=== PATIENT | female | born 1985 | race Caucasian/White ===

== ENCOUNTER 2018-02-01 05:56 | Day surgery (SDC) | payer MEDICAID ==
[2018-01-26 16:09] LABS: BASOPHILS # (AUTO) 0.1 X10'3 (0-0.2); BASOPHILS % (AUTO) 1.2 % (0-1); EOSINOPHILS # (AUTO) 0.2 X10'3 (0-0.9); EOSINOPHILS % (AUTO) 1.5 % (0-6); LYMPHOCYTES # (AUTO) 1.9 X10'3 (1.1-4.8); LYMPHOCYTES % (AUTO) 17.9 % (21-51); MEAN CORPUSCULAR HEMOGLOBIN 26.8 PG (27.0-31.0); MEAN CORPUSCULAR HGB CONC 33.5 % (33.0-36.5); MEAN CORPUSCULAR VOLUME 80.1 FL (78-98); MEAN PLATELET VOLUME 9.1 FL (7.4-10.4); MONOCYTES # (AUTO) 0.5 X10'3 (0-0.9); NEUTROPHILS % (AUTO) 74.4 % (42-75); PRE OP HEMATOCRIT 42.9 % (35.0-45.0); PRE OP HEMOGLOBIN 14.4 g/dL (12.0-16.0); PRE OP PLATELET COUNT 222 X10'3 (140-440); RED BLOOD COUNT 5.35 X10'6 (4.20-5.60); RED CELL DISTRIBUTION WIDTH 15.2 % (11.5-14.5)
[2018-01-26 16:14] LABS: CLARITY,URINE CLEAR (Clear); COLOR,URINE YELLOW (Yellow); GLUCOSE, URINE NEGATIVE (Neg); KETONES,URINE NEGATIVE (Neg); LEUKOCYTE ESTERASE ,URINE NEGATIVE (Neg); NITRITES, URINE NEGATIVE (Neg); OCCULT BLOOD,URINE TRACE-LYSED (Neg); PH,URINE 6.5 (4.8-8.0); PROTEIN,URINE NEGATIVE (Neg); UROBILINOGEN,URINE 0.2 E.U/dL (0.2-1.0)
[2018-01-26 16:18] LABS: UA COLLECTION TYPE NON-SPECIFIED
[2018-01-26 16:22] LABS: BACTERIA,URINE 1+ /HPF (Neg); MUCUS STRANDS NONE SEEN /LPF (Neg); RBC,URINE 0-2 /HPF (0-2); SQUAMOUS EPITHELIAL CELL,UR NONE SEEN /LPF (FEW)
[2018-01-26 16:24] LABS: ALBUMIN 3.6 G/DL (3.4-5.0); ALBUMIN/GLOBULIN RATIO 0.9 (1.1-1.5); ALKALINE PHOSPHATASE 79 IU/L (46-116); BLOOD UREA NITROGEN 15 MG/DL (7-18); BUN/CREATININE RATIO 21.4 (6.6-38.0); CHLORIDE 103 MMOL/L (99-107); PRE OP ALT 41 U/L (30-65); PRE OP ANION GAP 10 (8-16); PRE OP AST 26 U/L (10-37); PRE OP BILIRUB, TOTAL 0.8 MG/DL (0.0-1.0); PRE OP GLUCOSE 93 MG/DL (70-104); PRE OP POTASSIUM 3.8 MMOL/L (3.4-5.1); PRE OP SODIUM 142 MMOL/L (135-145); TOTAL CARBON DIOXIDE 29.3 MMOL/L (24-32); TOTAL PROTEIN 7.6 G/DL (6.4-8.2); eGFR > 90 ML/MIN
[~2018-02-01] VITALS: Ht 152.4 cm; Wt 176.6 kg
[2018-02-01] VITALS (7 sets, daily range): BP systolic 134–143; BP diastolic 70–92
[~2018-02-01 05:56] MED LIST: ALBU0.63 NEB; ALBU18HF2 INH; BUPIVAcaine/PF 2.5mg/ml (0.25%) 10ml vial ONE; BUPIVAcaine/PF 7.5mg/ml (0.75%) 10ml vial ONE; LIDOcaine 1%/PF 5ML 10 MG/ML VIAL ONE; MIDAZolam 5mg/5ml vial ONE; VENL75CA55 PO; XAL0.005OS EACHEYE; [UNRECOGNIZED DRUG - OTHER] INH; albuterol 2.5 MG/3 ML nebule NEB ONE; ceFAZolin inj. 3,000 MG in normal saline 100ml IV soln 100 ML IV ONE; famotidine 20mg tablet PO ONE; fentaNYL/PF 50MCG/1 ML 2ML syringe ONE; propofol inj 20 ML IV ONE; ringers solution, lacted 1,000 ML IV SCH
[2018-02-01] MEDS ORDERED: ROPIVAcaine 0.5% (5mg/ml) 30ml vial ONE (06:48)
[2018-02-01] MEDS ORDERED: MIDAZolam 5mg/ml 2ml vial IV PRN (08:15)
[2018-02-01] MEDS ORDERED: fentaNYL /PF 50mcg/ml 5ml ampule ONE (08:15)
[2018-02-01] MEDS ORDERED: MIDAZolam 5mg/ml 2ml vial IV ONE (08:15)
[2018-02-01] MEDS ORDERED: propofol inj 20 ML IV ONE ×2 (08:17→08:18)
[2018-02-01] MEDS ORDERED: LIDOcaine 2% (20mg/ml) 5ml vial ONE (08:18)
[2018-02-01] MEDS ORDERED: succinylcholine 20mg/ml inj IV ONE (08:19)
[2018-02-01] MEDS ORDERED: ringers solution, lacted 1,000 ML IV SCH (08:26)
[2018-02-01] MEDS ORDERED: ondansetron/PF 4mg/2ml inj IV PRN (08:30)
[2018-02-01] MEDS ORDERED: HYDROmorphone inj. 0.5 MG/0.5 ML DISP.SYRIN IV PRN ×2 (08:30)
[2018-02-01] MEDS ORDERED: fentaNYL/PF 50MCG/1 ML 2ML syringe IV PRN ×2 (08:30)
[2018-02-01] MEDS ORDERED: labetalol 20mg/4ml (5mg/ml) syringe IV PRN (08:30)
[2018-02-01] MEDS ORDERED: hydrALAZINE 20mg/ml inj. IV PRN (08:30)
[2018-02-01] MEDS ORDERED: propofol 10mg/ml 20ml vial IV ONE (08:35)
[2018-02-01] MEDS ORDERED: sevoflurane 250ml liquid IH ONE (08:35)
[2018-02-01] MEDS ORDERED: dexmedetomidine 200mcg/2ml inj. IV ONE (08:36)
[2018-02-01] MEDS ORDERED: hydrALAZINE 20mg/ml inj. IV ONE (08:52)
[2018-02-01] MEDS ORDERED: ondansetron/PF 4mg/2ml inj ONE (09:06)
[2018-02-01] MEDS ORDERED: dexamethasone sod phosphate 4mg/ml inj. ONE (09:06)
== END 2018-02-01 10:42 | disposition home or self-care (01) ==
LOC: PAS 05:56
PROVIDERS: ATTEND Surgery
DX: K60.1 Chronic anal fissure (principal); K64.8 Other hemorrhoids; K62.89 Other specified diseases of anus and rectum; E66.01 Morbid (severe) obesity due to excess calories; J45.998 Other asthma; E11.9 Type 2 diabetes mellitus without complications; F41.8 Other specified anxiety disorders; F32.9 Major depressive disorder, single episode, unspecified; G43.909 Migraine, unspecified, not intractable, without status migrainosus; F43.10 Post-traumatic stress disorder, unspecified; Z88.5 Allergy status to narcotic agent; Z68.44 Body mass index [BMI] 60.0-69.9, adult; Z90.710 Acquired absence of both cervix and uterus; Z90.49 Acquired absence of other specified parts of digestive tract; Z86.14 Personal history of Methicillin resistant Staphylococcus aureus infection; Z88.1 Allergy status to other antibiotic agents; Z91.040 Latex allergy status; Z91.048 Other nonmedicinal substance allergy status; Z98.890 Other specified postprocedural states; Z79.899 Other long term (current) drug therapy; Z88.8 Allergy status to other drugs, medicaments and biological substances
CPT/HCPCS: 36415; 45990; 46200; 80053; 81001; 82948; 85025; 87088; 93005; A6224; A6449; J0330; J0360; J0690; J1100; J2001; J2250; J2405; J2704; J2795; J3010; J7030; A7000; J3490; J7120

== ENCOUNTER 2018-03-21 04:42 | Inpatient (IN) | payer MEDICAID ==
[~2018-03-21] VITALS: Ht 170.2 cm; Wt 174.1 kg
[~2018-03-21 04:42] MED LIST changes: -BUPIVAcaine/PF 2.5mg/ml (0.25%) 10ml vial ONE; -BUPIVAcaine/PF 7.5mg/ml (0.75%) 10ml vial ONE; -LIDOcaine 1%/PF 5ML 10 MG/ML VIAL ONE; -MIDAZolam 5mg/5ml vial ONE; -albuterol 2.5 MG/3 ML nebule NEB ONE; -ceFAZolin inj. 3,000 MG in normal saline 100ml IV soln 100 ML IV ONE; -famotidine 20mg tablet PO ONE; -fentaNYL/PF 50MCG/1 ML 2ML syringe ONE; -propofol inj 20 ML IV ONE; -ringers solution, lacted 1,000 ML IV SCH
[2018-03-21] MEDS ORDERED: normal saline 1000ML IV soln IVB ONE ×2 (04:55→06:55)
[2018-03-21] MEDS ORDERED: ondansetron/PF 4mg/2ml inj IV ONE (04:55)
[2018-03-21] MEDS ORDERED: ketorolac tromethamine 15mg/ml inj. IV ONE (04:55)
[2018-03-21] MEDS ORDERED: ketorolac trometh. 30mg/ml inj. IV ONE (04:55)
[2018-03-21] MEDS ORDERED: HYDROmorphone 1 mg/ml syringe IV PRN (05:10)
[2018-03-21 05:50] LABS: BASOPHILS # (AUTO) 0.1 X10'3 (0-0.2); BASOPHILS % (AUTO) 1.2 % (0-1); EOSINOPHILS # (AUTO) 0.2 X10'3 (0-0.9); EOSINOPHILS % (AUTO) 2.1 % (0-6); HEMATOCRIT 48.7 % (35.0-45.0); HEMOGLOBIN 16.2 g/dl (12.0-16.0); LYMPHOCYTES # (AUTO) 1.7 X10'3 (1.1-4.8); LYMPHOCYTES % (AUTO) 20.1 % (21-51); MEAN CORPUSCULAR HEMOGLOBIN 27.3 PG (27.0-31.0); MEAN CORPUSCULAR HGB CONC 33.3 % (33.0-36.5); MEAN CORPUSCULAR VOLUME 81.8 FL (78-98); MEAN PLATELET VOLUME 10.6 FL (7.4-10.4); MONOCYTES # (AUTO) 0.5 X10'3 (0-0.9); MONOCYTES % (AUTO) 5.4 % (2-12); NEUTROPHILS # (AUTO) 5.9 X10'3 (1.8-7.7); NEUTROPHILS % (AUTO) 71.2 % (42-75); PLATELET COUNT 194 X10'3 (140-440); RED BLOOD COUNT 5.95 X10'6 (4.20-5.60); RED CELL DISTRIBUTION WIDTH 15.1 % (11.5-14.5); WHITE BLOOD COUNT 8.3 X10'3 (4.5-11.0)
[2018-03-21 06:05] LABS: ALANINE AMINOTRANSFERASE 43 U/L (12-78); ALBUMIN 3.9 G/DL (3.4-5.0); ALBUMIN/GLOBULIN RATIO 0.8 (1.1-1.5); ALKALINE PHOSPHATASE 84 IU/L (46-116); ANION GAP 13 (8-16); ASPARTATE AMINO TRANSFERASE 36 U/L (10-37); BILIRUBIN,TOTAL 0.5 MG/DL (0.1-1.0); BLOOD UREA NITROGEN 12 MG/DL (7-18); BUN/CREATININE RATIO 17.1 (6.6-38.0); CALCIUM 9.6 MG/DL (8.5-10.1); CHLORIDE 103 MMOL/L (99-107); GLUCOSE 92 MG/DL (70-104); SODIUM 141 MMOL/L (135-145); TOTAL PROTEIN 8.6 G/DL (6.4-8.2); eGFR > 90 ML/MIN
[2018-03-21 06:17] LABS: LIPASE 2694 U/L (73-393); POTASSIUM 4.1 MMOL/L (3.5-5.1)
[2018-03-21] MEDS ORDERED: fentaNYL/PF 50MCG/1 ML 2ML syringe IV ONE (06:55)
[2018-03-21] MEDS: normal saline 1000ml 1,000 ML IV SCH ×3 (07:51→19:53)
[2018-03-21] MEDS ORDERED: potassium Cl 20 mEq SR tablet PO PRN ×2 (07:55)
[2018-03-21] MEDS ORDERED: potassium Cl 40MEQ/NS 500ml 500 ML IV PRN ×2 (07:55)
[2018-03-21] MEDS ORDERED: HYDROcodone/acetaminophen 10/325mg tab PO PRN (07:55)
[2018-03-21] MEDS ORDERED: HYDROcodone/acetaminophen 5mg/325mg tablet PO PRN (07:55)
[2018-03-21] MEDS ORDERED: magnesium Cl slow-release 64mg tablet PO PRN (07:55)
[2018-03-21] MEDS ORDERED: magnesium 1gm/100ml D5W IVPB 100 ML IV PRN (07:55)
[2018-03-21] MEDS ORDERED: morphine 2 MG/ML inj. syringe IV PRN ×2 (07:55)
[2018-03-21] MEDS ORDERED: magnesium 4gm in 100ml NS 100 ML IV PRN (07:55)
[2018-03-21] MEDS ORDERED: acetaminophen 325mg tablet PO PRN ×2 (07:55)
[2018-03-21] MEDS ORDERED: magnesium hydroxide 30ml (MOM) UD suspension PO PRN (07:55)
[2018-03-21] MEDS ORDERED: mag hydrox/Alum hydrox/simeth 30ml oral suspension PO PRN (07:55)
[2018-03-21] MEDS: K and/or MAG REPLACEMENT MC SCH (08:00)
[2018-03-21 09:40] LABS: CLARITY,URINE SLIGHTLY CLOUDY (Clear); COLOR,URINE YELLOW (Yellow); GLUCOSE, URINE NEGATIVE (Neg); KETONES,URINE 15 mg/dl (Neg); LEUKOCYTE ESTERASE ,URINE NEGATIVE (Neg); NITRITES, URINE NEGATIVE (Neg); OCCULT BLOOD,URINE LARGE (Neg); PH,URINE 8.5 (4.8-8.0); PROTEIN,URINE NEGATIVE (Neg); UA COLLECTION TYPE CLN CATCH MIDSTREAM
[2018-03-21 09:50] LABS: BACTERIA,URINE 3+ /HPF (Neg); MUCUS STRANDS FEW /LPF (Neg); RBC,URINE TNTC /HPF (0-2); SQUAMOUS EPITHELIAL CELL,UR MODERATE /LPF (FEW); WBC,URINE 20-30 /HPF (0-4)
[2018-03-21 10:00] VITALS: BP 122/65
[2018-03-21] MEDS ORDERED: dextrose 50%-water 50ml dispensing syringe IV PRN ×2 (10:15)
[2018-03-21] MEDS ORDERED: dextrose ORAL solution 15 GM/59 ML bottle PO PRN ×2 (10:15)
[2018-03-21] MEDS ORDERED: non-formulary drug (Albuterol Sulfate 1 VIAL) NEB PRN (10:15)
[2018-03-21] MEDS ORDERED: glucagon, human recombinant 1mg kit SUBCUT PRN (10:15)
[2018-03-21] MEDS ORDERED: MESSAGE TO PHARMACY PO ONE (10:15)
[2018-03-21] MEDS: latanoprost 0.005% 2.5ml ophthalmic drops EACHEYE SCH ×2 (10:15→20:47)
[2018-03-21] MEDS ORDERED: insulin Lispro (HumaLOG) vial - multi-dose SQ SCH (10:15)
[2018-03-21] MEDS ORDERED: ketorolac trometh. 30mg/ml inj. IV PRN (10:20)
[2018-03-21] MEDS: pantoprazole 40 MG vial IV SCH (10:20)
[2018-03-21] MEDS ORDERED: albuterol 2.5 MG/3 ML nebule NEB PRN (11:25)
[2018-03-21] MEDS ORDERED: ketorolac tromethamine 15mg/ml inj. IV PRN (12:04)
[2018-03-21 19:30] VITALS: BP 180/97
[2018-03-21] MEDS: ondansetron/PF 4mg/2ml inj IV PRN (19:54)
[2018-03-21] MEDS ORDERED: magnesium oxide 400mg tablet PO ONE (20:50)
[2018-03-21] MEDS: insulin glargine (Lantus) pen - multi-dose SQ SCH (21:00)
[2018-03-22] VITALS (15 sets, daily range): BP systolic 112–163; BP diastolic 55–106
[2018-03-22] MEDS ORDERED: temazepam 15mg capsule PO PRN (02:40)
[2018-03-22 06:25] LABS: BASOPHILS % (AUTO) 0.6 % (0-1); EOSINOPHILS # (AUTO) 0.1 X10'3 (0-0.9); EOSINOPHILS % (AUTO) 2.3 % (0-6); HEMATOCRIT 37.6 % (35.0-45.0); HEMOGLOBIN 12.6 g/dl (12.0-16.0); LYMPHOCYTES # (AUTO) 1.6 X10'3 (1.1-4.8); LYMPHOCYTES % (AUTO) 27.5 % (21-51); MEAN CORPUSCULAR HEMOGLOBIN 27.4 PG (27.0-31.0); MEAN CORPUSCULAR HGB CONC 33.6 % (33.0-36.5); MEAN CORPUSCULAR VOLUME 81.4 FL (78-98); MEAN PLATELET VOLUME 9.9 FL (7.4-10.4); MONOCYTES # (AUTO) 0.5 X10'3 (0-0.9); MONOCYTES % (AUTO) 7.6 % (2-12); NEUTROPHILS # (AUTO) 3.7 X10'3 (1.8-7.7); PLATELET COUNT 151 X10'3 (140-440); RED BLOOD COUNT 4.61 X10'6 (4.20-5.60)
[2018-03-22 06:39] LABS: ALANINE AMINOTRANSFERASE 53 U/L (12-78); ALBUMIN 2.8 G/DL (3.4-5.0); ALBUMIN/GLOBULIN RATIO 0.8 (1.1-1.5); ALKALINE PHOSPHATASE 72 IU/L (46-116); ANION GAP 8 (8-16); ASPARTATE AMINO TRANSFERASE 58 U/L (10-37); BILIRUBIN,TOTAL 0.8 MG/DL (0.1-1.0); BLOOD UREA NITROGEN 9 MG/DL (7-18); BUN/CREATININE RATIO 14.1 (6.6-38.0); CALCIUM 8.3 MG/DL (8.5-10.1); CHLORIDE 108 MMOL/L (99-107); CREATININE 0.64 MG/DL (0.40-0.90); GLUCOSE 91 MG/DL (70-104); MAGNESIUM 1.7 MG/DL (1.5-2.4); SODIUM 141 MMOL/L (135-145); TOTAL CARBON DIOXIDE 25.5 MMOL/L (24-32); TOTAL PROTEIN 6.1 G/DL (6.4-8.2); eGFR > 90 ML/MIN
[2018-03-22] MEDS: K and/or MAG REPLACEMENT MC SCH (07:05)
[2018-03-22] MEDS ORDERED: [UNRECOGNIZED DRUG - OTHER] INH SCH (08:00)
[2018-03-22] MEDS ORDERED: cloNIDine 0.1 mg tablet PO ONE (08:00)
[2018-03-22] MEDS: pantoprazole 40 MG vial IV SCH (08:17)
[2018-03-22] MEDS ORDERED: ringers solution, lacted 1,000 ML IV SCH (08:53)
[2018-03-22] MEDS ORDERED: proCHLORperazine 10 MG/2 ml inj IV PRN (08:55)
[2018-03-22] MEDS ORDERED: meperidine/PF 25mg/ml syringe IV PRN ×3 (08:55)
[2018-03-22] MEDS ORDERED: ondansetron/PF 4mg/2ml inj IV PRN (08:55)
[2018-03-22] MEDS ORDERED: midazolam 2 mg/2 ml injection ONE (09:55)
[2018-03-22] MEDS ORDERED: fentaNYL/PF 50MCG/1 ML 2ML syringe ONE (09:55)
[2018-03-22] MEDS ORDERED: iohexol 300 MG/1 ML 50ml polymer ONE (10:06)
[2018-03-22] MEDS ORDERED: propofol inj 20 ML IV ONE ×2 (10:06)
[2018-03-22 10:17] LABS: LIPASE 1953 U/L (73-393)
[2018-03-22] MEDS ORDERED: ondansetron/PF 4mg/2ml inj ONE (10:36)
[2018-03-22] MEDS: normal saline 1000ml 1,000 ML IV SCH ×2 (13:34→20:46)
[2018-03-22] MEDS: oxybutynin 5mg tablet PO SCH ×2 (13:34→20:48)
[2018-03-22] MEDS ORDERED: cephalexin 500mg capsule PO SCH ×2 (14:00→16:00)
[2018-03-22] MEDS: ondansetron/PF 4mg/2ml inj IV PRN (16:20)
[2018-03-22] MEDS ORDERED: HYDROmorphone inj. 0.5 MG/0.5 ML DISP.SYRIN IV PRN (16:35)
[2018-03-22] MEDS: HYDROmorphone 1 mg/ml syringe IV PRN (16:42)
[2018-03-22] MEDS: insulin glargine (Lantus) pen - multi-dose SQ SCH (20:50)
[2018-03-22] MEDS ORDERED: tamsulosin 0.4mg capsule PO SCH (21:00)
[2018-03-22] MEDS: latanoprost 0.005% 2.5ml ophthalmic drops EACHEYE SCH (21:14)
[2018-03-22] MEDS: levoFLOXACIN-Levaquin 500mg/D5 100 ML IV SCH (23:44)
[2018-03-22] MEDS: heparin, porcine 5000 units/ml vial SQ SCH (23:50)
[2018-03-23] VITALS: BP 138/83
[2018-03-23] MEDS: HYDROmorphone 1 mg/ml syringe IV PRN (02:43)
[2018-03-23] MEDS: normal saline 1000ml 1,000 ML IV SCH ×3 (02:45→07:35)
[2018-03-23 05:25] LABS: BASOPHILS % (AUTO) 0.2 % (0-1); EOSINOPHILS # (AUTO) 0.1 X10'3 (0-0.9); EOSINOPHILS % (AUTO) 1.2 % (0-6); HEMATOCRIT 39.4 % (35.0-45.0); HEMOGLOBIN 13.1 g/dl (12.0-16.0); LYMPHOCYTES % (AUTO) 13.1 % (21-51); MEAN CORPUSCULAR HEMOGLOBIN 27.2 PG (27.0-31.0); MEAN CORPUSCULAR HGB CONC 33.2 % (33.0-36.5); MEAN CORPUSCULAR VOLUME 81.9 FL (78-98); MEAN PLATELET VOLUME 10.9 FL (7.4-10.4); MONOCYTES # (AUTO) 0.4 X10'3 (0-0.9); MONOCYTES % (AUTO) 5.7 % (2-12); NEUTROPHILS # (AUTO) 6.2 X10'3 (1.8-7.7); NEUTROPHILS % (AUTO) 79.8 % (42-75); PLATELET COUNT 159 X10'3 (140-440); RED BLOOD COUNT 4.81 X10'6 (4.20-5.60); RED CELL DISTRIBUTION WIDTH 14.8 % (11.5-14.5); WHITE BLOOD COUNT 7.7 X10'3 (4.5-11.0)
[2018-03-23 05:38] LABS: ALANINE AMINOTRANSFERASE 60 U/L (12-78); ALBUMIN 2.9 G/DL (3.4-5.0); ALBUMIN/GLOBULIN RATIO 0.8 (1.1-1.5); ALKALINE PHOSPHATASE 74 IU/L (46-116); ANION GAP 10 (8-16); ASPARTATE AMINO TRANSFERASE 40 U/L (10-37); BILIRUBIN,TOTAL 0.5 MG/DL (0.1-1.0); BLOOD UREA NITROGEN 9 MG/DL (7-18); CALCIUM 8.7 MG/DL (8.5-10.1); CHLORIDE 106 MMOL/L (99-107); GLUCOSE 94 MG/DL (70-104); LIPASE 66 U/L (73-393); MAGNESIUM 1.6 MG/DL (1.5-2.4); POTASSIUM 3.9 MMOL/L (3.5-5.1); SODIUM 140 MMOL/L (135-145); TOTAL CARBON DIOXIDE 23.9 MMOL/L (24-32); TOTAL PROTEIN 6.5 G/DL (6.4-8.2); eGFR > 90 ML/MIN
[2018-03-23 05:57] LABS: LARGE PLATELETS FEW; PLATELET ESTIMATE NORMAL
[2018-03-23] MEDS: K and/or MAG REPLACEMENT MC SCH (07:06)
[2018-03-23] MEDS: levoFLOXACIN-Levaquin 500mg/D5 100 ML IV SCH (07:34)
[2018-03-23] MEDS: oxybutynin 5mg tablet PO SCH (07:35)
[2018-03-23] MEDS: pantoprazole 40 MG vial IV SCH (07:35)
[2018-03-23] MEDS: heparin, porcine 5000 units/ml vial SQ SCH (07:35)
[2018-03-23 09:32] VITALS: BP 120/51
[2018-03-23] MEDS ORDERED: TAMS0.4C32 PO (11:25)
[2018-03-23] MEDS ORDERED: LEVO500T89 PO (11:25)
[2018-03-23] MEDS ORDERED: OXYB5TAB11 PO (11:25)
[2018-03-23] MEDS ORDERED: PROC-8 PO (11:25)
[2018-03-23 12:26] VITALS: BP 128/83
== END 2018-03-23 12:30 | disposition home or self-care (01) | DRG 446 ==
LOC: ER 04:42 → ED HOLD 07:51 → SUR 3N 10:00
PROVIDERS: ADMIT Hospitalist; ATTEND Family Medicine
PROC: BT141ZZ Fluoroscopy of Kidneys, Ureters and Bladder using Low Osmolar Contrast (ICD-10-PCS; 2018-03-22)
PROC: 0T768DZ Dilation of Right Ureter with Intraluminal Device, Via Natural or Artificial Opening Endoscopic (ICD-10-PCS; 2018-03-22)
PROC: 0TBB8ZZ Excision of Bladder, Via Natural or Artificial Opening Endoscopic (ICD-10-PCS; principal; 2018-03-22 09:42)
DX: D49.4 Neoplasm of unspecified behavior of bladder (principal); K85.90 Acute pancreatitis without necrosis or infection, unspecified; E66.01 Morbid (severe) obesity due to excess calories; E11.9 Type 2 diabetes mellitus without complications; E78.1 Pure hyperglyceridemia; F12.90 Cannabis use, unspecified, uncomplicated; N13.9 Obstructive and reflux uropathy, unspecified; F32.9 Major depressive disorder, single episode, unspecified; F41.9 Anxiety disorder, unspecified; G43.909 Migraine, unspecified, not intractable, without status migrainosus; J45.909 Unspecified asthma, uncomplicated; G89.29 Other chronic pain; N20.2 Calculus of kidney with calculus of ureter; Z88.5 Allergy status to narcotic agent; Z90.49 Acquired absence of other specified parts of digestive tract; Z79.899 Other long term (current) drug therapy; Z90.710 Acquired absence of both cervix and uterus; Z68.44 Body mass index [BMI] 60.0-69.9, adult; Z88.8 Allergy status to other drugs, medicaments and biological substances; Z91.040 Latex allergy status
CPT/HCPCS: 36415; 74176; 76001; 80053; 81001; 82948; 83036; 83690; 83735; 85025; 87070; 87088; 96361; 96374; 96375; 99285; A4402; A6255; C1758; C1769; C2617; C9113; G0378; J0690; J1170; J1644; J1815; J1885; J1956; J2250; J2405; J2704; J3010; J7030; J7120; Q9967

== ENCOUNTER 2018-03-23 21:27 | Inpatient (IN) | payer MEDICAID ==
[~2018-03-23] VITALS: Ht 170.2 cm; Wt 174.1 kg
[~2018-03-23 21:27] MED LIST changes: +LEVO500T89 PO; +OXYB5TAB11 PO; +PROC-8 PO; +TAMS0.4C32 PO; -VENL75CA55 PO
[2018-03-23] MEDS ORDERED: fentaNYL/PF 50MCG/1 ML 2ML syringe NAS ONE (22:40)
[2018-03-23] MEDS ORDERED: ondansetron/PF 4mg/2ml inj IM ONE (22:40)
[2018-03-24] MEDS ORDERED: normal saline 1000ml 1,000 ML IV ONE (01:01)
[2018-03-24] MEDS ORDERED: ondansetron/PF 4mg/2ml inj IV ONE (01:05)
[2018-03-24] MEDS ORDERED: ketorolac tromethamine 15mg/ml inj. IV ONE (01:05)
[2018-03-24] MEDS ORDERED: fentaNYL/PF 50MCG/1 ML 2ML syringe IV ONE (01:05)
[2018-03-24] MEDS ORDERED: normal saline 1000ML IV soln IVB ONE (01:05)
[2018-03-24] MEDS ORDERED: LIDOcaine 2% (20 mg/ml) 5ml cardiac syringe IV STA (01:05)
[2018-03-24 01:44] LABS: ALANINE AMINOTRANSFERASE 59 U/L (12-78); ALBUMIN 3.5 G/DL (3.4-5.0); ALKALINE PHOSPHATASE 69 IU/L (46-116); ANION GAP 11 (8-16); ASPARTATE AMINO TRANSFERASE 32 U/L (10-37); BILIRUBIN,TOTAL 0.4 MG/DL (0.1-1.0); BLOOD UREA NITROGEN 16 MG/DL (7-18); BUN/CREATININE RATIO 16.8 (6.6-38.0); CALCIUM 9.3 MG/DL (8.5-10.1); CHLORIDE 104 MMOL/L (99-107); CREATININE 0.95 MG/DL (0.40-0.90); GLUCOSE 126 MG/DL (70-104); LIPASE 73 U/L (73-393); MAGNESIUM 1.6 MG/DL (1.5-2.4); POTASSIUM 3.6 MMOL/L (3.5-5.1); SODIUM 140 MMOL/L (135-145); TOTAL PROTEIN 7.1 G/DL (6.4-8.2); eGFR 67 ML/MIN
[2018-03-24 01:49] LABS: INR 1.1 INR; PARTIAL THROMBOPLASTIN TIME 28 SECONDS (22-32)
[2018-03-24 01:57] LABS: BASOPHILS % (AUTO) 0.2 % (0-1); EOSINOPHILS # (AUTO) 0.1 X10'3 (0-0.9); EOSINOPHILS % (AUTO) 0.6 % (0-6); HEMATOCRIT 40.8 % (35.0-45.0); HEMOGLOBIN 13.4 g/dl (12.0-16.0); LYMPHOCYTES # (AUTO) 1.7 X10'3 (1.1-4.8); LYMPHOCYTES % (AUTO) 14.7 % (21-51); MEAN CORPUSCULAR HEMOGLOBIN 27.3 PG (27.0-31.0); MEAN CORPUSCULAR HGB CONC 32.9 % (33.0-36.5); MEAN CORPUSCULAR VOLUME 82.8 FL (78-98); MEAN PLATELET VOLUME 11.4 FL (7.4-10.4); MONOCYTES # (AUTO) 0.7 X10'3 (0-0.9); MONOCYTES % (AUTO) 6.5 % (2-12); NEUTROPHILS # (AUTO) 8.8 X10'3 (1.8-7.7); PLATELET COUNT 187 X10'3 (140-440); RED BLOOD COUNT 4.93 X10'6 (4.20-5.60); RED CELL DISTRIBUTION WIDTH 14.9 % (11.5-14.5); WHITE BLOOD COUNT 11.3 X10'3 (4.5-11.0)
[2018-03-24] MEDS: normal saline 1000ml 1,000 ML IV SCH ×4 (01:59→21:27)
[2018-03-24] MEDS ORDERED: acetaminophen 650mg rectal suppository RC PRN (02:00)
[2018-03-24] MEDS ORDERED: mag hydrox/Alum hydrox/simeth 30ml oral suspension PO PRN (02:00)
[2018-03-24] MEDS ORDERED: acetaminophen 325mg tablet PO PRN ×2 (02:00)
[2018-03-24] MEDS ORDERED: bisacodyl 10mg suppository rectal RC PRN (02:00)
[2018-03-24] MEDS ORDERED: diphenhydrAMINE 50 mg/ml inj IV PRN (02:00)
[2018-03-24] MEDS ORDERED: magnesium hydroxide 30ml (MOM) UD suspension PO PRN (02:00)
[2018-03-24] MEDS ORDERED: metoclopramide 5 mg/ml inj IV PRN (02:00)
[2018-03-24] MEDS ORDERED: diphenhydrAMINE 25mg capsule PO PRN (02:00)
[2018-03-24] MEDS: ondansetron/PF 4mg/2ml inj IV PRN ×3 (03:48→17:24)
[2018-03-24] MEDS: HYDROcodone/acetaminophen 10/325mg tab PO PRN ×2 (04:01→08:50)
[2018-03-24] MEDS: docusate sod 100mg capsule PO SCH ×2 (08:00→20:47)
[2018-03-24] MEDS: pantoprazole 40mg Tablet.DR PO SCH (08:22)
[2018-03-24] MEDS: levoFLOXACIN-Levaquin 750MG/D5 150 ML IV SCH (08:36)
[2018-03-24] MEDS: heparin, porcine 5000 units/ml vial SQ SCH ×2 (08:45→17:24)
[2018-03-24 09:01] LABS: COLOR,URINE BROWN (Yellow); UA COLLECTION TYPE CLN CATCH MIDSTREAM
[2018-03-24 09:02] LABS: CLARITY,URINE CLOUDY (Clear)
[2018-03-24 09:43] LABS: MUCUS STRANDS MANY /LPF (Neg); SQUAMOUS EPITHELIAL CELL,UR MODERATE /LPF (FEW)
[2018-03-24 09:44] LABS: RBC,URINE TNTC /HPF (0-2); WBC,URINE 30-50 /HPF (0-4)
[2018-03-24 09:50] LABS: BACTERIA,URINE FEW /HPF (Neg)
[2018-03-24 14:00] VITALS: BP 145/82
[2018-03-24] MEDS ORDERED: MESSAGE TO PHARMACY PO ONE (18:00)
[2018-03-24] MEDS ORDERED: dextrose 50%-water 50ml dispensing syringe IV PRN ×2 (18:00)
[2018-03-24] MEDS ORDERED: glucagon, human recombinant 1mg kit SUBCUT PRN (18:00)
[2018-03-24] MEDS ORDERED: insulin Lispro (HumaLOG) vial - multi-dose SQ SCH (18:00)
[2018-03-24] MEDS ORDERED: dextrose ORAL solution 15 GM/59 ML bottle PO PRN ×2 (18:00)
[2018-03-24] MEDS ORDERED: dronabinol 2.5mg capsule PO PRN (18:35)
[2018-03-24 20:00] VITALS: BP 149/83
[2018-03-24] MEDS: tamsulosin 0.4mg capsule PO SCH (20:47)
[2018-03-24] MEDS: ketorolac trometh. 30mg/ml inj. IV SCH (20:47)
[2018-03-24] MEDS: insulin glargine (Lantus) pen - multi-dose SQ SCH (20:49)
[2018-03-24] MEDS ORDERED: temazepam 15mg capsule PO PRN (21:00)
[2018-03-25] VITALS: BP 140/80
[2018-03-25] MEDS: heparin, porcine 5000 units/ml vial SQ SCH ×3 (00:27→15:54)
[2018-03-25] MEDS: HYDROcodone/acetaminophen 10/325mg tab PO PRN (00:34)
[2018-03-25] MEDS: ketorolac trometh. 30mg/ml inj. IV SCH ×4 (02:08→21:37)
[2018-03-25] MEDS: normal saline 1000ml 1,000 ML IV SCH ×4 (02:09→19:16)
[2018-03-25 06:21] LABS: BASOPHILS % (AUTO) 0.6 % (0-1); EOSINOPHILS # (AUTO) 0.1 X10'3 (0-0.9); EOSINOPHILS % (AUTO) 1.2 % (0-6); HEMATOCRIT 34.7 % (35.0-45.0); HEMOGLOBIN 11.5 g/dl (12.0-16.0); LYMPHOCYTES # (AUTO) 2.1 X10'3 (1.1-4.8); LYMPHOCYTES % (AUTO) 44.4 % (21-51); MEAN CORPUSCULAR HEMOGLOBIN 27.3 PG (27.0-31.0); MEAN CORPUSCULAR HGB CONC 33.2 % (33.0-36.5); MEAN CORPUSCULAR VOLUME 82.1 FL (78-98); MEAN PLATELET VOLUME 10.5 FL (7.4-10.4); MONOCYTES # (AUTO) 0.4 X10'3 (0-0.9); MONOCYTES % (AUTO) 8.3 % (2-12); NEUTROPHILS # (AUTO) 2.2 X10'3 (1.8-7.7); NEUTROPHILS % (AUTO) 45.5 % (42-75); PLATELET COUNT 130 X10'3 (140-440); RED BLOOD COUNT 4.23 X10'6 (4.20-5.60); RED CELL DISTRIBUTION WIDTH 14.8 % (11.5-14.5); WHITE BLOOD COUNT 4.8 X10'3 (4.5-11.0)
[2018-03-25 06:41] LABS: ALANINE AMINOTRANSFERASE 49 U/L (12-78); ALBUMIN 2.8 G/DL (3.4-5.0); ALKALINE PHOSPHATASE 52 IU/L (46-116); ANION GAP 6 (8-16); ASPARTATE AMINO TRANSFERASE 27 U/L (10-37); BILIRUBIN,TOTAL 0.4 MG/DL (0.1-1.0); BLOOD UREA NITROGEN 10 MG/DL (7-18); BUN/CREATININE RATIO 14.5 (6.6-38.0); CALCIUM 8.3 MG/DL (8.5-10.1); CHLORIDE 109 MMOL/L (99-107); CREATININE 0.69 MG/DL (0.40-0.90); GLUCOSE 78 MG/DL (70-104); POTASSIUM 3.7 MMOL/L (3.5-5.1); SODIUM 143 MMOL/L (135-145); TOTAL CARBON DIOXIDE 27.8 MMOL/L (24-32); TOTAL PROTEIN 5.7 G/DL (6.4-8.2); eGFR > 90 ML/MIN
[2018-03-25] MEDS: levoFLOXACIN-Levaquin 750MG/D5 150 ML IV SCH (07:25)
[2018-03-25] MEDS: ondansetron/PF 4mg/2ml inj IV PRN ×2 (07:27→15:54)
[2018-03-25] MEDS: pantoprazole 40mg Tablet.DR PO SCH (07:30)
[2018-03-25] MEDS: docusate sod 100mg capsule PO SCH ×2 (07:42→20:00)
[2018-03-25 07:43] VITALS: BP 139/86
[2018-03-25 07:46] LABS: LARGE PLATELETS FEW; PLATELET ESTIMATE DECREASED
[2018-03-25 12:00] VITALS: BP 158/85
[2018-03-25] MEDS: oxyCODONE IR 5mg (immed. release) tablet PO PRN ×2 (15:55→21:38)
[2018-03-25 18:30] VITALS: BP 151/95
[2018-03-25] MEDS: insulin glargine (Lantus) pen - multi-dose SQ SCH (21:00)
[2018-03-25] MEDS: lactobacillus rhamnosus 10,000 MMU CELLS/CAPSULE PO SCH (21:36)
[2018-03-25] MEDS: tamsulosin 0.4mg capsule PO SCH (21:37)
[2018-03-25 23:30] VITALS: BP 107/52
[2018-03-26] MEDS: heparin, porcine 5000 units/ml vial SQ SCH ×3 (00:17→15:20)
[2018-03-26] MEDS: ondansetron/PF 4mg/2ml inj IV PRN ×2 (00:23→11:40)
[2018-03-26] MEDS: ketorolac trometh. 30mg/ml inj. IV SCH ×3 (02:32→14:00)
[2018-03-26] MEDS: normal saline 1000ml 1,000 ML IV SCH ×4 (02:32→14:05)
[2018-03-26 05:55] LABS: BASOPHILS % (AUTO) 0.6 % (0-1); EOSINOPHILS # (AUTO) 0.1 X10'3 (0-0.9); HEMATOCRIT 34.1 % (35.0-45.0); HEMOGLOBIN 11.1 g/dl (12.0-16.0); LYMPHOCYTES # (AUTO) 1.6 X10'3 (1.1-4.8); LYMPHOCYTES % (AUTO) 29.2 % (21-51); MEAN CORPUSCULAR HEMOGLOBIN 26.8 PG (27.0-31.0); MEAN CORPUSCULAR HGB CONC 32.6 % (33.0-36.5); MEAN CORPUSCULAR VOLUME 82.1 FL (78-98); MEAN PLATELET VOLUME 10.2 FL (7.4-10.4); MONOCYTES # (AUTO) 0.5 X10'3 (0-0.9); MONOCYTES % (AUTO) 8.5 % (2-12); NEUTROPHILS # (AUTO) 3.2 X10'3 (1.8-7.7); NEUTROPHILS % (AUTO) 59.7 % (42-75); PLATELET COUNT 120 X10'3 (140-440); RED BLOOD COUNT 4.16 X10'6 (4.20-5.60); RED CELL DISTRIBUTION WIDTH 14.8 % (11.5-14.5); WHITE BLOOD COUNT 5.3 X10'3 (4.5-11.0)
[2018-03-26 06:11] LABS: ALANINE AMINOTRANSFERASE 55 U/L (12-78); ALBUMIN 2.7 G/DL (3.4-5.0); ALBUMIN/GLOBULIN RATIO 0.9 (1.1-1.5); ALKALINE PHOSPHATASE 59 IU/L (46-116); ANION GAP 7 (8-16); ASPARTATE AMINO TRANSFERASE 34 U/L (10-37); BILIRUBIN,TOTAL 0.5 MG/DL (0.1-1.0); BLOOD UREA NITROGEN 7 MG/DL (7-18); BUN/CREATININE RATIO 10.8 (6.6-38.0); CALCIUM 8.5 MG/DL (8.5-10.1); CHLORIDE 108 MMOL/L (99-107); CREATININE 0.65 MG/DL (0.40-0.90); GLUCOSE 78 MG/DL (70-104); POTASSIUM 3.4 MMOL/L (3.5-5.1); SODIUM 141 MMOL/L (135-145); TOTAL CARBON DIOXIDE 26.5 MMOL/L (24-32); TOTAL PROTEIN 5.7 G/DL (6.4-8.2); eGFR > 90 ML/MIN
[2018-03-26 07:00] VITALS: BP 151/83
[2018-03-26] MEDS: lactobacillus rhamnosus 10,000 MMU CELLS/CAPSULE PO SCH (07:32)
[2018-03-26] MEDS: pantoprazole 40mg Tablet.DR PO SCH (07:32)
[2018-03-26] MEDS: levoFLOXACIN-Levaquin 750MG/D5 150 ML IV SCH (07:35)
[2018-03-26] MEDS: oxyCODONE IR 5mg (immed. release) tablet PO PRN (07:39)
[2018-03-26] MEDS: docusate sod 100mg capsule PO SCH (08:00)
[2018-03-26] MEDS ORDERED: potassium Cl 40MEQ/NS 500ml 500 ML IV PRN ×2 (10:35)
[2018-03-26] MEDS ORDERED: potassium Cl 20 mEq SR tablet PO PRN ×2 (10:35)
[2018-03-26 11:30] VITALS: BP 169/82
[2018-03-26] MEDS ORDERED: DOCU-28 PO (15:04)
[2018-03-26] MEDS ORDERED: PANT40TA4 PO (15:04)
[2018-03-26] MEDS ORDERED: OXYC-658 PO (15:04)
[2018-03-26] MEDS ORDERED: POTA20TA19 PO (15:10)
== END 2018-03-26 17:02 | disposition home or self-care (01) | DRG 465 ==
LOC: ER 21:27 → ED HOLD 03-24 01:59 → SUR 3N 03-24 13:28
PROVIDERS: ADMIT Family Medicine; ATTEND Internal Medicine
DX: N13.8 Other obstructive and reflux uropathy (principal); E66.01 Morbid (severe) obesity due to excess calories; N20.0 Calculus of kidney; D49.4 Neoplasm of unspecified behavior of bladder; E11.9 Type 2 diabetes mellitus without complications; N39.0 Urinary tract infection, site not specified; F43.10 Post-traumatic stress disorder, unspecified; G43.909 Migraine, unspecified, not intractable, without status migrainosus; T40.2X5A Adverse effect of other opioids, initial encounter; I10 Essential (primary) hypertension; Z88.1 Allergy status to other antibiotic agents; Z79.899 Other long term (current) drug therapy; Z88.6 Allergy status to analgesic agent; Z88.8 Allergy status to other drugs, medicaments and biological substances; Z91.040 Latex allergy status; Z68.44 Body mass index [BMI] 60.0-69.9, adult; Z90.49 Acquired absence of other specified parts of digestive tract; Z90.710 Acquired absence of both cervix and uterus; Y92.89 Other specified places as the place of occurrence of the external cause
CPT/HCPCS: 36415; 80053; 81001; 82948; 83605; 83690; 83735; 85025; 85610; 85730; 87040; 87070; 96372; 96374; 96375; 99285; G0378; J1644; J1815; J1885; J1956; J2001; J2405; J2765; J3010; J7030; Q0167

== ENCOUNTER 2018-04-05 08:54 | Emergency (ER) | payer MEDICAID ==
[~2018-04-05] VITALS: Ht 170.2 cm; Wt 165.0 kg
[~2018-04-05 08:54] MED LIST changes: -ALBU0.63 NEB; +DOCU-28 PO; +OXYC-658 PO; +PANT40TA4 PO
[2018-04-05] MEDS ORDERED: ondansetron/PF 4mg/2ml inj IV ONE (09:45)
[2018-04-05] MEDS ORDERED: normal saline 1000ML IV soln IVB ONE (09:45)
[2018-04-05] MEDS ORDERED: ketorolac trometh. 30mg/ml inj. IV ONE (09:45)
[2018-04-05] MEDS ORDERED: acetaminophen 325mg tablet PO ONE (09:50)
[2018-04-05] MEDS ORDERED: LIDOcaine 2% (20 mg/ml) 5ml cardiac syringe IV ONE (09:55)
[2018-04-05 10:37] LABS: BASOPHILS # (AUTO) 0.1 X10'3 (0-0.2); BASOPHILS % (AUTO) 0.7 % (0-1); EOSINOPHILS # (AUTO) 0.2 X10'3 (0-0.9); EOSINOPHILS % (AUTO) 2.8 % (0-6); HEMATOCRIT 44.6 % (35.0-45.0); HEMOGLOBIN 14.7 g/dl (12.0-16.0); LYMPHOCYTES # (AUTO) 1.4 X10'3 (1.1-4.8); LYMPHOCYTES % (AUTO) 15.9 % (21-51); MEAN CORPUSCULAR HGB CONC 32.9 % (33.0-36.5); MEAN CORPUSCULAR VOLUME 81.9 FL (78-98); MEAN PLATELET VOLUME 10.1 FL (7.4-10.4); MONOCYTES # (AUTO) 0.5 X10'3 (0-0.9); MONOCYTES % (AUTO) 5.9 % (2-12); NEUTROPHILS # (AUTO) 6.7 X10'3 (1.8-7.7); NEUTROPHILS % (AUTO) 74.7 % (42-75); PLATELET COUNT 216 X10'3 (140-440); RED BLOOD COUNT 5.44 X10'6 (4.20-5.60); RED CELL DISTRIBUTION WIDTH 14.8 % (11.5-14.5)
[2018-04-05 10:49] LABS: ALANINE AMINOTRANSFERASE 52 U/L (12-78); ALBUMIN 3.7 G/DL (3.4-5.0); ALBUMIN/GLOBULIN RATIO 0.9 (1.1-1.5); ALKALINE PHOSPHATASE 79 IU/L (46-116); ANION GAP 10 (8-16); ASPARTATE AMINO TRANSFERASE 39 U/L (10-37); BILIRUBIN,TOTAL 0.5 MG/DL (0.1-1.0); BLOOD UREA NITROGEN 13 MG/DL (7-18); BUN/CREATININE RATIO 18.3 (6.6-38.0); CALCIUM 9.1 MG/DL (8.5-10.1); CHLORIDE 104 MMOL/L (99-107); CREATININE 0.71 MG/DL (0.40-0.90); GLUCOSE 106 MG/DL (70-104); POTASSIUM 4.1 MMOL/L (3.5-5.1); SODIUM 140 MMOL/L (135-145); TOTAL CARBON DIOXIDE 26.3 MMOL/L (24-32); TOTAL PROTEIN 7.6 G/DL (6.4-8.2); eGFR > 90 ML/MIN
[2018-04-05] MEDS ORDERED: CARDIAC IV ONE (10:50)
[2018-04-05] MEDS ORDERED: NORMAL SALINE IV ONE (10:50)
[2018-04-05] MEDS ORDERED: LIDOCAINE 2% IV ONE (10:50)
[2018-04-05 11:35] LABS: CLARITY,URINE TURBID (Clear); COLOR,URINE RED (Yellow); GLUCOSE, URINE NEGATIVE (Neg); KETONES,URINE 15 mg/dl (Neg); LEUKOCYTE ESTERASE ,URINE MODERATE (Neg); NITRITES, URINE POSITIVE (Neg); OCCULT BLOOD,URINE LARGE (Neg); PH,URINE 6.5 (4.8-8.0); PROTEIN,URINE >=300 mg/dl (Neg)
[2018-04-05 12:01] LABS: UA COLLECTION TYPE OTHER
[2018-04-05 12:02] LABS: BACTERIA,URINE 2+ /HPF (Neg); MUCUS STRANDS FEW /LPF (Neg); RBC,URINE TNTC /HPF (0-2); SQUAMOUS EPITHELIAL CELL,UR MODERATE /LPF (FEW); WBC,URINE 20-30 /HPF (0-4)
[2018-04-05] MEDS ORDERED: PHEN-824 PO (13:16)
[2018-04-05] MEDS ORDERED: FLO0.4C PO (13:16)
[2018-04-05] MEDS ORDERED: DIAZ5TAB PO (13:16)
[2018-04-05] MEDS ORDERED: OXYB5TAB11 PO (13:16)
[2018-04-05] MEDS ORDERED: KETO10TA2 PO (13:18)
[2018-04-05 14:07] VITALS: BP 134/70
== END 2018-04-05 14:10 | disposition home or self-care (01) ==
LOC: ER 08:55
DX: N20.0 Calculus of kidney (principal); E66.01 Morbid (severe) obesity due to excess calories; R10.31 Right lower quadrant pain; G43.909 Migraine, unspecified, not intractable, without status migrainosus; E11.9 Type 2 diabetes mellitus without complications; Z90.49 Acquired absence of other specified parts of digestive tract; Z90.710 Acquired absence of both cervix and uterus; Z98.890 Other specified postprocedural states; Z88.1 Allergy status to other antibiotic agents; Z91.040 Latex allergy status; Z88.5 Allergy status to narcotic agent; Z79.899 Other long term (current) drug therapy
CPT/HCPCS: 36415; 74176; 80053; 81001; 85025; 87088; 96365; 96366; 96375; 99284; J1885; J2001; J2405; J7030

== ENCOUNTER 2018-08-30 17:56 | Emergency (ER) | payer MEDICAID ==
[~2018-08-30] VITALS: Ht 170.2 cm; Wt 163.0 kg
[~2018-08-30 17:56] MED LIST changes: +DIAZ5TAB PO; +KETO10TA2 PO; -LEVO500T89 PO; -PANT40TA4 PO; +PHEN-824 PO; -PROC-8 PO
[2018-08-30 19:51] LABS: BASOPHILS # (AUTO) 0.1 X10'3 (0-0.2); BASOPHILS % (AUTO) 0.6 % (0-1); EOSINOPHILS # (AUTO) 0.1 X10'3 (0-0.9); EOSINOPHILS % (AUTO) 0.8 % (0-6); HEMATOCRIT 42.2 % (35.0-45.0); HEMOGLOBIN 14.1 g/dl (12.0-16.0); LYMPHOCYTES # (AUTO) 1.3 X10'3 (1.1-4.8); LYMPHOCYTES % (AUTO) 12.5 % (21-51); MEAN CORPUSCULAR HEMOGLOBIN 27.2 PG (27.0-31.0); MEAN CORPUSCULAR HGB CONC 33.5 g/dL (33.0-36.5); MEAN CORPUSCULAR VOLUME 81.1 FL (78-98); MEAN PLATELET VOLUME 9.4 FL (7.4-10.4); MONOCYTES # (AUTO) 0.5 X10'3 (0-0.9); MONOCYTES % (AUTO) 4.9 % (2-12); NEUTROPHILS # (AUTO) 8.7 X10'3 (1.8-7.7); NEUTROPHILS % (AUTO) 81.2 % (42-75); PLATELET COUNT 195 X10'3 (140-440); RED CELL DISTRIBUTION WIDTH 14.6 % (11.5-14.5); WHITE BLOOD COUNT 10.6 X10'3 (4.5-11.0)
[2018-08-30 19:52] LABS: CLARITY,URINE SLIGHTLY CLOUDY (Clear); COLOR,URINE YELLOW (Yellow); GLUCOSE, URINE NEGATIVE (Neg); KETONES,URINE 15 mg/dl (Neg); LEUKOCYTE ESTERASE ,URINE NEGATIVE (Neg); NITRITES, URINE NEGATIVE (Neg); OCCULT BLOOD,URINE NEGATIVE (Neg); PROTEIN,URINE TRACE mg/dl (Neg)
[2018-08-30 19:57] LABS: UA COLLECTION TYPE CLN CATCH MIDSTREAM
[2018-08-30 19:58] LABS: BACTERIA,URINE 3+ /HPF (Neg); RBC,URINE NONE SEEN /HPF (0-2); SQUAMOUS EPITHELIAL CELL,UR MANY /LPF (FEW); WBC,URINE 0-4 /HPF (0-4)
[2018-08-30 19:59] LABS: MUCUS STRANDS MODERATE /LPF (Neg); URINE HCG NEGATIVE (NEG)
[2018-08-30 20:01] LABS: ALANINE AMINOTRANSFERASE 36 U/L (12-78); ALBUMIN 3.5 G/DL (3.4-5.0); ALBUMIN/GLOBULIN RATIO 0.9 (1.1-1.5); ALKALINE PHOSPHATASE 68 IU/L (46-116); ANION GAP 7 (8-16); ASPARTATE AMINO TRANSFERASE 26 U/L (10-37); BILIRUBIN,TOTAL 0.7 MG/DL (0.1-1.0); BLOOD UREA NITROGEN 13 MG/DL (7-18); BUN/CREATININE RATIO 18.8 (6.6-38.0); CALCIUM 9.1 MG/DL (8.5-10.1); CHLORIDE 107 MMOL/L (99-107); CREATININE 0.69 MG/DL (0.40-0.90); GLUCOSE 99 MG/DL (70-104); SODIUM 142 MMOL/L (135-145); TOTAL CARBON DIOXIDE 28.1 MMOL/L (24-32); TOTAL PROTEIN 7.2 G/DL (6.4-8.2); eGFR > 90 ML/MIN
[2018-08-30 22:11] VITALS: BP 135/79
[2018-08-30] MEDS ORDERED: ketorolac trometh inj. 60 MG/2 ML VIAL IM ONE (22:25)
[2018-08-30] MEDS ORDERED: ondansetron 4mg rapidly disintigrating tab PO ONE (22:25)
[2018-08-30] MEDS ORDERED: proCHLORperazine 10 MG/2 ml inj IM ONE (22:25)
[2018-08-30 22:41] LABS: LIPASE 83 U/L (73-393)
[2018-08-31] MEDS ORDERED: HYDR-3965 PO (01:25)
[2018-08-31] MEDS ORDERED: PROC-8 PO (01:25)
== END 2018-08-31 01:42 | disposition home or self-care (01) ==
LOC: ER 17:56
DX: G89.29 Other chronic pain (principal); R10.84 Generalized abdominal pain; G43.909 Migraine, unspecified, not intractable, without status migrainosus; E11.9 Type 2 diabetes mellitus without complications; Z87.442 Personal history of urinary calculi; Z90.710 Acquired absence of both cervix and uterus; Z90.49 Acquired absence of other specified parts of digestive tract; Z98.890 Other specified postprocedural states; Z88.1 Allergy status to other antibiotic agents; Z88.5 Allergy status to narcotic agent; Z88.6 Allergy status to analgesic agent; Z79.899 Other long term (current) drug therapy
CPT/HCPCS: 36415; 74176; 80053; 81001; 81025; 83690; 85025; 85610; 96372; 99284; J0780; J1885

== ENCOUNTER 2019-09-07 13:28 | Emergency (ER) | payer MEDICAID ==
[~2019-09-07] VITALS: Ht 170.2 cm; Wt 160.0 kg
[~2019-09-07 13:28] MED LIST changes: -OXYB5TAB11 PO; +OXYB5TAB16 PO; +PROC-8 PO
[2019-09-07 14:13] LABS: CLARITY,URINE CLOUDY (Clear); COLOR,URINE YELLOW (Yellow); GLUCOSE, URINE NEGATIVE (Neg); KETONES,URINE NEGATIVE (Neg); LEUKOCYTE ESTERASE ,URINE NEGATIVE (Neg); NITRITES, URINE NEGATIVE (Neg); OCCULT BLOOD,URINE NEGATIVE (Neg); PROTEIN,URINE NEGATIVE (Neg); UROBILINOGEN,URINE 0.2 E.U/dL (0.2-1.0)
[2019-09-07 14:14] LABS: UA COLLECTION TYPE CLN CATCH MIDSTREAM
[2019-09-07 14:21] LABS: BACTERIA,URINE 1+ /HPF (Neg); RBC,URINE 0-2 /HPF (0-2); SQUAMOUS EPITHELIAL CELL,UR MANY /LPF (FEW); WBC,URINE 0-4 /HPF (0-4)
[2019-09-07 14:22] LABS: AMORPHOUS PHOSPHATES 1+
[2019-09-07] MEDS ORDERED: azithromycin 250mg tablet PO ONE (14:30)
[2019-09-07] MEDS ORDERED: CefTRIAXone 250MG IM Kit w/LIDOcaine IM ONE (14:30)
[2019-09-07 15:05] VITALS: BP 158/97
== END 2019-09-07 15:05 | disposition home or self-care (01) ==
LOC: ER 13:28
DX: A63.8 Other specified predominantly sexually transmitted diseases (principal); G43.909 Migraine, unspecified, not intractable, without status migrainosus; E11.9 Type 2 diabetes mellitus without complications; Z90.49 Acquired absence of other specified parts of digestive tract; Z90.710 Acquired absence of both cervix and uterus; Z98.890 Other specified postprocedural states; Z79.2 Long term (current) use of antibiotics; Z91.040 Latex allergy status; Z88.5 Allergy status to narcotic agent; Z88.8 Allergy status to other drugs, medicaments and biological substances; Z79.899 Other long term (current) drug therapy
CPT/HCPCS: 36415; 81001; 87491; 87591; 96372; 99283; J0696

== ENCOUNTER 2020-06-10 08:12 | Day surgery (SDC) | payer MEDICAID ==
[~2020-06-10] VITALS: Ht 170.2 cm; Wt 174.1 kg
[2020-06-10 08:30] VITALS: BP 160/96
[2020-06-10] MEDS ORDERED: LAMO25TA94 PO (09:03)
[2020-06-10] MEDS ORDERED: VENL25TA48 PO (09:04)
[2020-06-10] MEDS ORDERED: MIDAZolam 5mg/5ml vial ONE (09:09)
[2020-06-10] MEDS ORDERED: fentaNYL/PF 50MCG/1 ML 2ML syringe ONE (09:09)
[2020-06-10 09:50] VITALS: BP 150/90
[2020-06-10 10:00] VITALS: BP 146/54
[2020-06-10 10:10] VITALS: BP 143/78
[2020-06-10 10:20] VITALS: BP 135/70
== END 2020-06-10 10:50 | disposition home or self-care (01) ==
LOC: GI LAB 08:12
PROVIDERS: ATTEND Internal Medicine Gastroenterology
DX: Z12.11 Encounter for screening for malignant neoplasm of colon (principal); Z86.010 Personal history of colon polyps
CPT/HCPCS: 45378; 82948; J2250; J3010; J7040; 99152; A4620

== ENCOUNTER 2020-12-29 07:45 | Emergency (ER) | payer MEDICAID ==
[~2020-12-29] VITALS: Ht 170.2 cm; Wt 172.0 kg
[~2020-12-29 07:45] MED LIST changes: -DIAZ5TAB PO; -DOCU-28 PO; -KETO10TA2 PO; +LAMO25TA94 PO; -OXYB5TAB16 PO; -OXYC-658 PO; -PHEN-824 PO; -PROC-8 PO; -TAMS0.4C32 PO; +VENL25TA48 PO
[2020-12-29] MEDS ORDERED: ketorolac tromethamine 15mg/ml inj. IV ONE (08:05)
[2020-12-29] MEDS ORDERED: normal saline 1000ml 1,000 ML IV ONE (08:05)
[2020-12-29 08:16] LABS: CLARITY,URINE CLOUDY (Clear); COLOR,URINE YELLOW (Yellow); GLUCOSE, URINE NEGATIVE (Neg); KETONES,URINE NEGATIVE (Neg); LEUKOCYTE ESTERASE ,URINE NEGATIVE (Neg); NITRITES, URINE NEGATIVE (Neg); OCCULT BLOOD,URINE LARGE (Neg); PH,URINE 7.5 (4.8-8.0); PROTEIN,URINE NEGATIVE (Neg)
[2020-12-29 08:35] LABS: UA COLLECTION TYPE CLN CATCH MIDSTREAM
[2020-12-29 08:36] LABS: MUCUS STRANDS FEW /LPF (Neg); SQUAMOUS EPITHELIAL CELL,UR MODERATE /LPF (FEW)
[2020-12-29 08:37] LABS: BACTERIA,URINE 2+ /HPF (Neg); RBC,URINE TNTC /HPF (0-2); WBC,URINE 0-4 /HPF (0-4)
[2020-12-29] MEDS ORDERED: ondansetron/PF 4mg/2ml inj IV ONE (09:00)
[2020-12-29] MEDS ORDERED: morphine 4 MG/ML inj SYRINge IV ONE (09:00)
[2020-12-29] MEDS ORDERED: diphenhydrAMINE 50 mg/ml inj IV ONE (09:00)
[2020-12-29 09:05] LABS: BASOPHILS # (AUTO) 0.1 X10'3 (0-0.2); EOSINOPHILS # (AUTO) 0.2 X10'3 (0-0.9); HEMATOCRIT 43.9 % (35.0-45.0); HEMOGLOBIN 14.3 g/dl (12.0-16.0); LYMPHOCYTES # (AUTO) 1.8 X10'3 (1.1-4.8); LYMPHOCYTES % (AUTO) 23.2 % (21-51); MEAN CORPUSCULAR HEMOGLOBIN 27.1 PG (27.0-31.0); MEAN CORPUSCULAR HGB CONC 32.7 g/dL (33.0-36.5); MONOCYTES # (AUTO) 0.5 X10'3 (0-0.9); MONOCYTES % (AUTO) 6.6 % (2-12); NEUTROPHILS # (AUTO) 5.2 X10'3 (1.8-7.7); NEUTROPHILS % (AUTO) 67.2 % (42-75); PLATELET COUNT 218 X10'3 (140-440); RED BLOOD COUNT 5.29 X10'6 (4.20-5.60); RED CELL DISTRIBUTION WIDTH 14.1 % (11.5-14.5); WHITE BLOOD COUNT 7.7 X10'3 (4.5-11.0)
[2020-12-29 09:15] LABS: ALANINE AMINOTRANSFERASE 47 U/L (12-78); ALBUMIN 3.5 G/DL (3.4-5.0); ALBUMIN/GLOBULIN RATIO 0.9 (1.1-1.5); ALKALINE PHOSPHATASE 76 IU/L (46-116); ANION GAP 8 (8-16); ASPARTATE AMINO TRANSFERASE 28 U/L (10-37); BILIRUBIN,TOTAL 0.3 MG/DL (0.1-1.0); BLOOD UREA NITROGEN 15 MG/DL (7-18); BUN/CREATININE RATIO 18.8 (6.6-38.0); CALCIUM 8.4 MG/DL (8.5-10.1); CHLORIDE 111 MMOL/L (99-107); GLUCOSE 98 MG/DL (70-104); POTASSIUM 4.3 MMOL/L (3.5-5.1); SODIUM 145 MMOL/L (135-145); TOTAL PROTEIN 7.5 G/DL (6.4-8.2); eGFR 81 ML/MIN
[2020-12-29] MEDS ORDERED: FLO0.4C PO (09:46)
[2020-12-29] MEDS ORDERED: ONDA4TAB6 PO (09:46)
[2020-12-29] MEDS ORDERED: HYDR-3965 PO (09:46)
[2020-12-29 10:45] VITALS: BP 138/90
== END 2020-12-29 11:34 | disposition home or self-care (01) ==
LOC: ER 07:45
DX: N20.9 Urinary calculus, unspecified (principal); G43.909 Migraine, unspecified, not intractable, without status migrainosus; E11.9 Type 2 diabetes mellitus without complications; Z87.442 Personal history of urinary calculi; Z90.49 Acquired absence of other specified parts of digestive tract; Z90.710 Acquired absence of both cervix and uterus; Z98.890 Other specified postprocedural states; Z88.1 Allergy status to other antibiotic agents; Z88.8 Allergy status to other drugs, medicaments and biological substances; Z88.5 Allergy status to narcotic agent; Z79.899 Other long term (current) drug therapy
CPT/HCPCS: 36415; 74176; 80053; 81001; 85025; 96361; 96374; 96375; 99284; J1200; J2270; J2405; J7030

== ENCOUNTER 2021-09-17 11:43 | Emergency (ER) | payer MEDICAID ==
[~2021-09-17] VITALS: Ht 170.2 cm; Wt 154.0 kg
[~2021-09-17 11:43] MED LIST changes: +ONDA4TAB6 PO
[2021-09-17 12:17] VITALS: BP 146/88
[2021-09-17] MEDS ORDERED: FLUC150T PO (14:28)
[2021-09-17] MEDS ORDERED: fluconazole 150mg tablet PO ONE (14:30)
== END 2021-09-17 14:49 | disposition home or self-care (01) ==
LOC: ER 11:43
DX: B37.3 Candidiasis of vulva and vagina (principal); G43.909 Migraine, unspecified, not intractable, without status migrainosus; E11.9 Type 2 diabetes mellitus without complications; Z87.442 Personal history of urinary calculi; Z90.49 Acquired absence of other specified parts of digestive tract; Z88.0 Allergy status to penicillin; Z88.8 Allergy status to other drugs, medicaments and biological substances; Z91.040 Latex allergy status; Z88.5 Allergy status to narcotic agent
CPT/HCPCS: 99283

== ENCOUNTER 2022-06-01 16:17 | Emergency (ER) | payer MEDICAID ==
[~2022-06-01] VITALS: Ht 170.2 cm; Wt 142.3 kg
[2022-06-01 16:27] VITALS: BP 144/94
[2022-06-01] MEDS ORDERED: TRAM50TA2 PO (18:11)
[2022-06-01] MEDS ORDERED: CEPH250T PO (18:11)
[2022-06-01] MEDS ORDERED: NAPR-56 PO (18:11)
[2022-06-01] MEDS ORDERED: traMADol 50MG tablet PO ONE (18:15)
[2022-06-01] MEDS ORDERED: HYDR-3965 PO (18:33)
[2022-06-01] MEDS ORDERED: HYDROcodone/acetaminophen 5mg/325mg tablet PO ONE (18:38)
== END 2022-06-01 18:54 | disposition home or self-care (01) ==
LOC: ER 16:18
DX: K08.89 Other specified disorders of teeth and supporting structures (principal); G43.909 Migraine, unspecified, not intractable, without status migrainosus; E11.9 Type 2 diabetes mellitus without complications; Z90.710 Acquired absence of both cervix and uterus; Z88.1 Allergy status to other antibiotic agents; Z88.8 Allergy status to other drugs, medicaments and biological substances; Z88.5 Allergy status to narcotic agent; Z91.040 Latex allergy status; Z90.49 Acquired absence of other specified parts of digestive tract
CPT/HCPCS: 99283

== ENCOUNTER 2022-09-09 12:52 | Emergency (ER) | payer MEDICAID ==
[~2022-09-09] VITALS: Ht 170.2 cm; Wt 148.0 kg
[2022-09-09 13:02] VITALS: BP 201/111
[2022-09-09] MEDS ORDERED: HYDROcodone/acetaminophen 10/325mg tab PO ONE (13:25)
[2022-09-09] MEDS ORDERED: ketorolac trometh inj. 60 MG/2 ML VIAL IM ONE (13:25)
[2022-09-09] MEDS ORDERED: ketorolac trometh. 30mg/ml inj. IM ONE (13:25)
[2022-09-09] MEDS ORDERED: HYDR-3965 PO (13:33)
[2022-09-09] MEDS ORDERED: IBUP-1986 PO (13:33)
== END 2022-09-09 14:05 | disposition home or self-care (01) ==
LOC: ER 12:53
DX: K08.89 Other specified disorders of teeth and supporting structures (principal); G43.909 Migraine, unspecified, not intractable, without status migrainosus; E11.9 Type 2 diabetes mellitus without complications; Z88.1 Allergy status to other antibiotic agents; Z88.8 Allergy status to other drugs, medicaments and biological substances; Z90.49 Acquired absence of other specified parts of digestive tract; Z90.710 Acquired absence of both cervix and uterus
CPT/HCPCS: 96372; 99283; J1885

== ENCOUNTER 2023-01-01 08:54 | Emergency (ER) | payer MEDICAID ==
[~2023-01-01] VITALS: Ht 170.2 cm; Wt 139.6 kg
[~2023-01-01 08:54] MED LIST changes: +IBUP-1986 PO
[2023-01-01] MEDS ORDERED: ondansetron 4mg rapidly disintigrating tab PO ONE (09:30)
[2023-01-01] MEDS ORDERED: acetaminophen 325mg tablet PO ONE (09:30)
[2023-01-01] MEDS ORDERED: morphine 10mg/ml inj. IV ONE (09:30)
[2023-01-01] MEDS ORDERED: morphine 10mg/ml inj. IM ONE (09:40)
[2023-01-01] MEDS ORDERED: GABA-530 PO (09:41)
[2023-01-01] MEDS ORDERED: IBUP-1985 PO (09:41)
[2023-01-01] MEDS ORDERED: ACET-1013 PO (09:41)
[2023-01-01 10:12] VITALS: BP 142/96; PULSE 73; RESP 17; TEMP 98.2; O2SAT 99
== END 2023-01-01 10:39 | disposition home or self-care (01) ==
LOC: ER 08:54
DX: S33.5XXA Sprain of ligaments of lumbar spine, initial encounter (principal); R51.9 Headache, unspecified; R11.0 Nausea; G89.29 Other chronic pain; E11.9 Type 2 diabetes mellitus without complications; J45.909 Unspecified asthma, uncomplicated; Z88.8 Allergy status to other drugs, medicaments and biological substances; Z88.1 Allergy status to other antibiotic agents; Z91.040 Latex allergy status; Z88.5 Allergy status to narcotic agent; Z79.899 Other long term (current) drug therapy; X58.XXXA Exposure to other specified factors, initial encounter; Y93.89 Activity, other specified; Y92.89 Other specified places as the place of occurrence of the external cause; Y99.8 Other external cause status
CPT/HCPCS: 96372; 99283; J2274

== ENCOUNTER 2023-01-15 18:47 | Emergency (ER) | payer MEDICAID ==
[~2023-01-15] VITALS: Ht 170.2 cm; Wt 140.0 kg
[~2023-01-15 18:47] MED LIST changes: +ACET-1013 PO; +IBUP-1985 PO
[2023-01-15 19:01] VITALS: BP 163/103; PULSE 94; RESP 18; TEMP 98; O2SAT 99
[2023-01-15] MEDS ORDERED: oxyCODONE/APAP 10/325mg tablet PO ONE (21:45)
[2023-01-15] MEDS ORDERED: OXYC-150 PO (22:25)
== END 2023-01-15 22:43 | disposition home or self-care (01) ==
LOC: ER 18:49
DX: M54.41 Lumbago with sciatica, right side (principal); G43.909 Migraine, unspecified, not intractable, without status migrainosus; E11.9 Type 2 diabetes mellitus without complications; Z88.8 Allergy status to other drugs, medicaments and biological substances; Z88.1 Allergy status to other antibiotic agents; Z91.040 Latex allergy status; Z79.1 Long term (current) use of non-steroidal anti-inflammatories (NSAID); Z79.899 Other long term (current) drug therapy; Z90.710 Acquired absence of both cervix and uterus
CPT/HCPCS: 72110; 99283

== ENCOUNTER 2023-03-14 14:15 | Emergency (ER) | payer MEDICAID ==
[~2023-03-14] VITALS: Ht 170.2 cm; Wt 134.1 kg
[~2023-03-14 14:15] MED LIST changes: -ACET-1013 PO; +OXYC-150 PO
[2023-03-14 14:36] VITALS: BP 180/108; PULSE 90; TEMP 98.4; O2SAT 97
[2023-03-14] MEDS ORDERED: ketorolac trometh inj. 60 MG/2 ML VIAL IM ONE (14:45)
[2023-03-14] MEDS ORDERED: diazepam inj 5 MG/ML inj. IM ONE (14:45)
--- NOTE | 2023-03-14 14:50 | NUR ---
I have reviewed and agree with all interventions, assessments performed and documented by PROSPER Shannon.
[2023-03-14 14:58] VITALS: RESP 18
== END 2023-03-14 15:08 | disposition home or self-care (01) ==
LOC: ER 14:16
DX: S16.1XXA Strain of muscle, fascia and tendon at neck level, initial encounter (principal); E11.9 Type 2 diabetes mellitus without complications; G89.29 Other chronic pain; M54.9 Dorsalgia, unspecified; G43.909 Migraine, unspecified, not intractable, without status migrainosus; Z88.8 Allergy status to other drugs, medicaments and biological substances; Z88.1 Allergy status to other antibiotic agents; Y93.89 Activity, other specified; Y92.89 Other specified places as the place of occurrence of the external cause; Y99.8 Other external cause status
CPT/HCPCS: 96372; 99284; J1885; J3360

== ENCOUNTER 2023-03-15 05:03 | Emergency (ER) | payer MEDICAID ==
[~2023-03-15] VITALS: Ht 167.6 cm; Wt 134.6 kg
[2023-03-15] MEDS ORDERED: NORMAL SALINE IV ONE (06:50)
[2023-03-15] MEDS ORDERED: KETAMINE IV ONE (06:50)
[2023-03-15 09:21] VITALS: BP 158/89; PULSE 63; RESP 14; TEMP 98; O2SAT 100
== END 2023-03-15 09:23 | disposition home or self-care (01) ==
LOC: ER 05:03
DX: G89.29 Other chronic pain (principal); M54.9 Dorsalgia, unspecified; G43.909 Migraine, unspecified, not intractable, without status migrainosus; E11.9 Type 2 diabetes mellitus without complications; Z79.899 Other long term (current) drug therapy; Z88.8 Allergy status to other drugs, medicaments and biological substances
CPT/HCPCS: 96365; 99285; J3490

== ENCOUNTER 2023-10-11 12:08 | Emergency (ER) | payer MEDICAID ==
[~2023-10-11] VITALS: Ht 165.1 cm; Wt 126.4 kg
[2023-10-11] MEDS ORDERED: CIPR10DR RIGHT EAR (12:52)
[2023-10-11] MEDS ORDERED: AMOX-117 PO (12:52)
[2023-10-11 13:42] VITALS: BP 136/68; PULSE 78; RESP 18; TEMP 98.2; O2SAT 98
== END 2023-10-11 13:44 | disposition home or self-care (01) ==
LOC: ER 12:09
DX: H66.91 Otitis media, unspecified, right ear (principal); H60.91 Unspecified otitis externa, right ear; G43.909 Migraine, unspecified, not intractable, without status migrainosus; E11.9 Type 2 diabetes mellitus without complications; Z88.8 Allergy status to other drugs, medicaments and biological substances; Z88.1 Allergy status to other antibiotic agents; Z91.040 Latex allergy status; Z79.899 Other long term (current) drug therapy; Z79.1 Long term (current) use of non-steroidal anti-inflammatories (NSAID); Z90.49 Acquired absence of other specified parts of digestive tract; Z90.710 Acquired absence of both cervix and uterus
CPT/HCPCS: 99283

== ENCOUNTER 2024-03-16 18:34 | Emergency (ER) | payer MEDICAID ==
[~2024-03-16] VITALS: Ht 165.1 cm; Wt 120.0 kg
[2024-03-16 19:39] VITALS: BP 143/88
[2024-03-16] MEDS: levoFLOXACIN-Levaquin 750MG/D5 150 ML IV STA (20:05)
[2024-03-16] MEDS: traMADol 50MG tablet PO ONE (20:05)
[2024-03-16] MEDS: LIDOcaine 1% W/epiNEPHrine 1:100,000 20ml vial IJ ONE (20:05)
[2024-03-16 20:08] LABS: BASOPHILS # (AUTO) 0.1 X10'3 (0-0.2); EOSINOPHILS # (AUTO) 0.1 X10'3 (0-0.9); EOSINOPHILS % (AUTO) 1.9 % (0-6); HEMATOCRIT 36.7 % (35.0-45.0); HEMOGLOBIN 12.3 g/dl (12.0-16.0); LYMPHOCYTES # (AUTO) 1.4 X10'3 (1.1-4.8); LYMPHOCYTES % (AUTO) 18.9 % (21-51); MEAN CORPUSCULAR HEMOGLOBIN 26.8 PG (27.0-31.0); MEAN CORPUSCULAR HGB CONC 33.5 g/dL (33.0-36.5); MEAN CORPUSCULAR VOLUME 80.1 FL (78-98); MEAN PLATELET VOLUME 8.7 FL (7.4-10.4); MONOCYTES # (AUTO) 0.6 X10'3 (0-0.9); MONOCYTES % (AUTO) 7.7 % (2-12); NEUTROPHILS # (AUTO) 5.1 X10'3 (1.8-7.7); NEUTROPHILS % (AUTO) 70.5 % (42-75); PLATELET COUNT 271 X10'3 (140-440); RED BLOOD COUNT 4.58 X10'6 (4.20-5.60); RED CELL DISTRIBUTION WIDTH 13.5 % (11.5-14.5); WHITE BLOOD COUNT 7.2 X10'3 (4.5-11.0)
[2024-03-16 20:14] LABS: ALBUMIN 2.7 G/DL (3.4-5.0); ANION GAP 4 (8-16); BLOOD UREA NITROGEN 10 MG/DL (7-18); BUN/CREATININE RATIO 13.7 (10.0-20.0); CALCIUM 8.9 MG/DL (8.5-10.1); CHLORIDE 105 MMOL/L (99-107); CREATININE 0.73 MG/DL (0.40-0.90); GLUCOSE 118 MG/DL (70-104); SODIUM 141 MMOL/L (135-145); TOTAL CARBON DIOXIDE 31.9 MMOL/L (24-32); eCRCL 92 ML/MIN; eGFR 88 ML/MIN
[2024-03-16 20:21] LABS: POTASSIUM 4.1 MMOL/L (3.5-5.1)
[2024-03-16] MEDS ORDERED: SULF1TAB45 PO (21:03)
[2024-03-16 22:04] VITALS: PULSE 78; RESP 18; TEMP 99.2; O2SAT 98
== END 2024-03-16 22:19 | disposition home or self-care (01) ==
LOC: ER 18:35
DX: T81.41XA Infection following a procedure, superficial incisional surgical site, initial encounter (principal); G89.29 Other chronic pain; M54.9 Dorsalgia, unspecified; E11.9 Type 2 diabetes mellitus without complications; G43.909 Migraine, unspecified, not intractable, without status migrainosus; Z88.1 Allergy status to other antibiotic agents; Z88.0 Allergy status to penicillin; Z88.5 Allergy status to narcotic agent; Z88.8 Allergy status to other drugs, medicaments and biological substances; Z90.710 Acquired absence of both cervix and uterus; Z90.49 Acquired absence of other specified parts of digestive tract; Z79.1 Long term (current) use of non-steroidal anti-inflammatories (NSAID); Z79.899 Other long term (current) drug therapy; Z87.442 Personal history of urinary calculi; Z56.0 Unemployment, unspecified
CPT/HCPCS: 10060; 36415; 80048; 85025; 87070; 96365; 96366; 99284; A6266; J1956; 87077; 87186; A6253

== ENCOUNTER 2024-12-01 10:02 | Emergency (ER) | payer MEDICAID ==
[~2024-12-01] VITALS: Ht 170.2 cm; Wt 129.1 kg
[2024-12-01 10:12] VITALS: TEMP 98
[2024-12-01 11:59] VITALS: BP 167/107; PULSE 77; O2SAT 99
--- NOTE | 2024-12-01 12:08 | Physician Documentation ---
History of Present Illness ~ Chief Complaint: Neck pain Stated Complaint: NECK PAIN Time Seen by MD: 11:33 OK to notify your PCP?: Yes Primary Medical Doctor: [facility] Source: patient Mode of Arrival: POV Exam Limitations: no limitations HPI 39-year-old female with right neck and posterior right shoulder pain. She reports that she has an upcoming surgery to her C-spine. She has no new injuries but woke up with this pain. She describes the pain as a burning sensation the travels down her neck and into her shoulder. Took Tylenol and ibuprofen for pain relief Medication Reconciliation Allergies: Coded Allergies: gabapentin (Unverified Allergy, Severe, 03/16/24) salmeterol (Verified Allergy, Severe, ANAPHYLAXIS, 03/16/24) ampicillin (Verified Allergy, Unknown, RASH, 03/16/24) cefaclor (Unverified Allergy, Unknown, 03/16/24) dicyclomine (Unverified Allergy, Unknown, 03/16/24) fluoxetine (Unverified Allergy, Unknown, 03/16/24) latex (Verified Allergy, Unknown, RASH, SWELLING, 03/16/24) hydromorphone (Verified Adverse Reaction, Severe, MIGRAINES, 03/16/24) morphine (Verified Adverse Reaction, Severe, MIGRAINES, 03/16/24) Uncoded Allergies: TAPE (Allergy, Severe, severe rash, 03/16/24) STEROID (Allergy, Unknown, 01/01/23) Scheduled Ibuprofen (Ibuprofen), 1 TAB PO Q8H Ibuprofen (Ibuprofen), 1 TAB PO Q8H Lamotrigine (LaMICtal tablet), 2 TAB PO DAILY, (Reported) Latanoprost (XALATAN ophth drops), 1 DROP EACHEYE DAILY, (Reported) Ondansetron Hcl (Zofran), 1 TAB PO Q6H Venlafaxine Hcl (Effexor), 50 MG PO DAILY, (Reported) [Pot Joint], 2 EACH INH DAILY, (Reported) Scheduled PRN Albuterol Sulfate (Ventolin Hfa), 2 PUFFS INH Q4HPRN PRN for SOB or wheezing, (Reported) Oxycodone HCl/Acetaminophen (Percocet 10-325 mg Tablet), 1 TAB PO TID PRN PRN for pain Past Medical History Past Medical History: Migraine, Pancreatitis, Kidney Stones, Diabetes, Chronic Back Pain Past Surgical History: cholecystectomy, hysterectomy, orthopedic surgeries, other Other Past Surgical History: right ureteral stent Alcohol Use: None Drug Use: none Lives In: Home Occupation: unemployed Review of Systems All Other Systems at this time: Reviewed and Negative Physical Exam Vital Signs: RN Vital Signs have been reviewed: Yes, Temperature: 98.0, Source: Oral, Heart Rate: 77, Respiratory Rate: 18, BP: 167/107, Pulse Oximetry: 99, Weight: 129.100 Pulse Oximetry Reflects: adequate oxygenation Physical Exam General: Alert, no distress. HEENT: No injection, moist mucous membranes. Neck: Limited range motion. Respiratory: No respiratory distress, equal chest rise and fall. Chest: No accessory muscle use. Cardiovascular: Regular rate and rhythm. Gastrointestinal: Nondistended. Extremities: No deformity of right shoulder. Tenderness to palpation of the posterior aspect and along the trapezius muscle all the way to the neck. She does have limited range motion of shoulder due to pain. Back: Positive midline tenderness along cervical spine and into thoracic spine. Tenderness to palpation along the trapezius muscle bilaterally. Neurologic: Oriented x4. Psychiatric: Normal mood and affect. Skin: Normal color, warm and dry. Progress Results/Orders Results/Orders Vital Signs 12/01/24 12/01/24 10:12 11:59 Temp 98.0 Pulse 85 77 Resp 18 18 B/P (MAP) 158/88 167/107 (127) Pulse Ox 98 99 Medical Decision Making Additional info obtained from: old records Findings As this patient did not experience any new trauma she simply woke up with this pain, I do not see the need for any x-ray imaging. She does have tenderness to palpation along the trapezius muscle as well as some tightness in that muscle. She already has a relationship with the ortho spine doctor and states that she is having a surgery coming up. I do not think any imaging is going to show us anything it new as a bone structure should be normal. She does have good sensation, good pulses, good CSM in right arm and has radiculopathy through the arm. She reports that she was hoping to speak with her neurosurgeon and have an MRI while here in the department and I informed her that we do not help have a neurosurgeon at this hospital and that we do not do MRIs in the emergency room for this. I prescribed norco and sent the prescription to her pharmacy. We discussed she needs to follow up with her ortho spine doctor and call 1st thing tomorrow morning and return back here for any new or worsening symptoms.. Differential Dx:Considerations: Include: Discitis, Meningitis, Thyroiditis, Vertebral artery dissect. Departure Disposition: 01 HOME / SELF CARE / HOMELESS Impression: Primary Impression: Neck pain Condition: Stable Discharge Instructions: Acute Torticollis, Adult Additional Instructions: With your neurosurgeon as soon as possible. You need to have an MRI done on an outpatient basis. Please use Tylenol or ibuprofen for pain relief as well as a prescribed [place] if needed. You can use heating pad 20 minutes on 20 minutes off as well. Referrals: NO PRIMARY CARE PROVIDER (PCP) Prescriptions Hydrocodone Bit/Acetaminophen (Hydrocodon-Acetaminophn 10-325 tablet) 10mg- 325mg Tablet 1 TAB PO TID PRN PRN for pain for 5 Days, #15 TAB Prov: TANIA BARKER 12/01/24 Education Educated: Patient Educated regarding: diagnosis, treatment, prognosis, need for follow up Additional Comment Medical Screen Exam This patient recieved a medical screening examination. After reviewing the individual's medical complaints with presenting symptoms and performing an appropriate physical examination, it was determined that no immediate life- threatening emergency medical condition is present. This individual is also not a women having contractions. Signature Scribe Signature: . Attestation: Scribed for Tania Barker by Tania Pringle NP . 12/01/24 12:24 Parts of this note were created using [email or web address] voice recognition software program. While efforts were made to correct any mistakes made by this voice recognition software program, nonsensical phrases may remain in this note. In addition, there may be errors and syntax, grammar, content and spelling. TANIA BARKER Dec 01, 2024 12:08
[2024-12-01] MEDS ORDERED: HYDR-3972 PO (12:19)
[2024-12-01 12:28] VITALS: RESP 18
[2024-12-01] MEDS: HYDROcodone/acetaminophen 10/325mg tab PO ONE (12:28)
== END 2024-12-01 12:29 | disposition home or self-care (01) ==
LOC: ER 10:02
DX: M54.2 Cervicalgia (principal); M25.511 Pain in right shoulder; E11.9 Type 2 diabetes mellitus without complications; Z88.0 Allergy status to penicillin; Z88.1 Allergy status to other antibiotic agents; Z88.5 Allergy status to narcotic agent; Z88.8 Allergy status to other drugs, medicaments and biological substances; Z90.49 Acquired absence of other specified parts of digestive tract; Z90.710 Acquired absence of both cervix and uterus
CPT/HCPCS: 99283

== ENCOUNTER 2025-01-01 10:59 | Outpatient (CLI) | payer MEDICAID ==
[~2025-01-01 10:59] MED LIST changes: -IBUP-1985 PO; +IBUP600T52 PO
--- NOTE | 2025-01-01 18:31 | RADIOLOGY REPORT ---
PROCEDURE: MR MRI C SPINE Indication: SPINAL STENOSIS, CERVICAL REGION COMPARISON: None TECHNIQUE: Multiplanar multisequence images of the the cervical spine spine are obtained. FINDINGS: Examination markedly degraded by motion. Cervical heights maintained. Moderate to severe multilevel disc space narrowing and desiccation. No prevertebral edema. No abnormal marrow edema. Atlantooccipital, atlantoaxial articulations intact. C2-3: Disc osteophyte complex narrowing ventral and dorsal CSF spaces. Thecal sac measures 9 mm AP. Mild spinal canal stenosis. No neural foraminal stenosis. C3-4: Disc osteophyte complex narrowing the ventral and dorsal CSF spaces. Thecal sac measures 8 mm AP. Aytb-yo-zyzoywtr spinal canal stenosis. Ybhj-po-allsuzzj left and mild right neural foraminal s tenosis. C4-5: Disc osteophyte complex eccentric to the right effacing the ventral and dorsal CSF spaces. The eneida sac measures 7 mm AP. Moderate spinal canal stenosis. Moderate to severe left and moderate right neural foraminal stenosis. C5-6: Large disc osteophyte complex with dominant right paracentral component effacing the ventral an d dorsal CSF spaces and compressing upon the cord. Thecal sac measures 4 mm AP. Severe spinal canal stenosis. Severe bilateral neural foraminal stenosis. No definitive cord signal abnormality however very limited evaluation secondary to the extensive motion artifact. C6-7: Disc osteophyte complex effacing the ventral and dorsal CSF spaces. Thecal sac measures 6 mm A P. Moderate to severe spinal canal stenosis severe bilateral neural foraminal stenosis. C7-T1: Small disc osteophyte complex. Thecal sac measures 9 mm AP. Mild spinal canal stenosis. Moder ate right and gsfp-pi-zgqcehum left neural foraminal stenosis IMPRESSION: Examination significantly degraded by motion Moderate to severe cervical degenerative disc disease Severe stenosis C5-6 compression of the cord at this level. Recommend neurosurgical consultation for further evaluation. Moderate to severe spinal canal stenosis at C6-7. Moderate spinal canal stenosis C4-5. Scne-bg-nizye ate spinal canal stenosis C3-4. Mild spinal canal stenosis at C2-3, C7-T1. Moderate to severe multilevel neural foraminal stenosis.
== END 2025-01-01 23:59 | disposition home or self-care (01) ==
LOC: MRI02 10:59
PROVIDERS: ATTEND Family Medicine
DX: M48.03 Spinal stenosis, cervicothoracic region (principal); M25.78 Osteophyte, vertebrae
CPT/HCPCS: 72141

== ENCOUNTER 2025-03-12 14:52 | Emergency (ER) | payer MEDICAID ==
[~2025-03-12] VITALS: Ht 165.1 cm; Wt 125.7 kg
--- NOTE | 2025-03-12 15:22 | Physician Documentation ---
History of Present Illness Chief Complaint: Post-operative complication Stated Complaint: POST OP COMPLICATIONS Time Seen by MD: 15:20 Primary Medical Doctor: [facility] HPI Very pleasant 39-year-old female that presents to the emergency department for re-evaluation of potential infection of brachioplasty that was performed on February 26. Patient reports since that surgery she had a hematoma surgically removed to 1 of the affected arms via the same surgeon that performed her brachioplasty. Patient denies fever chills nausea vomiting diarrhea but does report warmth swelling and pain to the site of the brachioplasty on the right arm. Patient reports additional drainage she is concerned that the drainage appears more milky and it had previously. Patient denies excessive amounts of drainage reports 20-30 mL per day. Patient will follow up with her primary care provider and surgeon but would like to have antibiotics prescribed until she can see them. Medication Reconciliation Allergies: Coded Allergies: gabapentin (Unverified Allergy, Severe, 03/12/25) salmeterol (Verified Allergy, Severe, ANAPHYLAXIS, 03/12/25) ampicillin (Verified Allergy, Unknown, RASH, 03/12/25) cefaclor (Unverified Allergy, Unknown, 03/12/25) dicyclomine (Unverified Allergy, Unknown, 03/12/25) fluoxetine (Unverified Allergy, Unknown, 03/12/25) latex (Verified Allergy, Unknown, RASH, SWELLING, 03/16/24) hydromorphone (Verified Adverse Reaction, Severe, MIGRAINES, 03/16/24) morphine (Verified Adverse Reaction, Severe, MIGRAINES, 03/16/24) Uncoded Allergies: TAPE (Allergy, Severe, severe rash, 03/16/24) STEROID (Allergy, Unknown, 01/01/23) Scheduled Cephalexin*Monohydrate* (Keflex*), 1 CAP PO QID Ibuprofen (Ibuprofen), 1 TAB PO Q8H Ibuprofen (Ibuprofen), 1 TAB PO Q8H Lamotrigine (LaMICtal tablet), 2 TAB PO DAILY, (Reported) Latanoprost (XALATAN ophth drops), 1 DROP EACHEYE DAILY, (Reported) Ondansetron Hcl (Zofran), 1 TAB PO Q6H Venlafaxine Hcl (Effexor), 50 MG PO DAILY, (Reported) [Pot Joint], 2 EACH INH DAILY, (Reported) Scheduled PRN Albuterol Sulfate (Ventolin Hfa), 2 PUFFS INH Q4HPRN PRN for SOB or wheezing, (Reported) Oxycodone HCl/Acetaminophen (Percocet 10-325 mg Tablet), 1 TAB PO TID PRN PRN for pain Past Medical History Past Medical History: Migraine, Pancreatitis, Kidney Stones, Diabetes, Chronic Back Pain Past Surgical History: cholecystectomy, hysterectomy, orthopedic surgeries, other Other Past Surgical History: right ureteral stent Alcohol Use: None Drug Use: none Lives In: Home Occupation: unemployed Review of Systems ROS As stated above in the HPI, otherwise all systems are reviewed and negative. Physical Exam Vital Signs: Temperature: 96.9, Source: Temporal, Heart Rate: 97, Respiratory Rate: 18, BP: 145/94, Pulse Oximetry: 99, Weight: 125.700 Oxygen Flow Rate: 0 Physical Exam VITALS: Reviewed and as above. GENERAL: Alert, no apparent distress. HEENT: Normocephalic, atraumatic, PERRL, EOMI, dry mucosa, no erythema RESPIRATORY: Lungs clear, normal breath sounds, no respiratory distress. CHEST: No accessory muscle use, no retractions CV: Regular rate, rhythm, no edema, no murmur, No: JVD GI: Soft, non-tender, bowels sounds present, no rebound, guarding, or rigidity BACK: No CVA tenderness, or swelling MUSCULOSKELETAL No deformities, no edema SKIN: Suture lines present on arms bilaterally consistent with a brachioplasty procedure. Mild erythema noted to the right suture line some maceration present in the AC folds of each arm bilaterally. Mild warmth noted to the suture line on the right arm. NEURO: Oriented x4, No motor or sensory deficit PSYCH: Normal mood and affect, no agitation Progress Results/Orders Results/Orders Vital Signs 03/12/25 15:14 Temp 96.9 Pulse 97 Resp 18 B/P (MAP) 145/94 Pulse Ox 99 O2 Flow Rate 0 Medical Decision Making Additional information obtaine: other Findings 39-year-old female presenting with mild to moderate postoperative bacterial infection following brachioplasty. Patient is clinically stable for discharge, with mild leukocytosis (WBC 11) and otherwise unremarkable laboratory findings. No evidence of systemic toxicity, hemodynamic instability, or deep tissue involvement. Antibiotic management: Patient received 1 g IV ceftriaxone in the emergency department for initial coverage, consistent with FDA-approved indications for skin and skin structure infections and supported by guideline recommendations for surgical site infection management. Patient will be discharged on cephalexin 500 mg PO every 6 hours, as recommended by the Infect[employer] Society of [place] for trunk or extremity surgical site infections. Cephalexin provides appropriate coverage for streptococci and MSSA, the most common pathogens in this setting. Patient is able to tolerate oral medications and has no history of beta-lactam allergy. Analgesia: Patient was administered 10 mg hydrocodone-acetaminophen ([place]) in the ED due to inability to take prescribed pain medication at home. No adverse reactions observed. Patient instructed to resume home pain regimen as tolerated. Disposition and follow-up: Patient is stable for outpatient management. Strict return precautions discussed, including instructions to return to the ED for any worsening pain, erythema, swelling, fever, drainage, or other concerning symptoms. Patient will follow up with primary care provider and surgeon for ongoing wound assessment and management. Medical decision-making: Patient meets criteria for outpatient management of mild to moderate postoperative skin infection. Initial parenteral antibiotic therapy followed by oral cephalexin is evidence-based and guideline- concordant.Pain control addressed appropriately. Patient educated on medication adherence, potential adverse effects (including antibiotic-associated diarrhea), and importance of completing the full course of antibiotics. Patient stable for discharge at this time. Differential Dx:Considerations: Other, N/A Departure Disposition: 01 HOME / SELF CARE / HOMELESS Impression: Primary Impression: Postoperative infection Condition: Stable Discharge Instructions: Wound Infection, [id number] Additional Instructions: You are being discharged today after treatment for a mild to moderate infection at your surgical site following brachioplasty (arm lift surgery). Your lab results showed a slightly high white blood cell count, but all other tests were normal. You received a dose of ceftriaxone (Rocephin) and a dose of hydrocodone- acetaminophen ([place]) in the emergency department. You will continue treatment at home with oral cephalexin (Keflex). Antibiotics: Take cephalexin (Keflex) exactly as prescribed. Do not skip doses and finish the entire course, even if you start to feel better. Prolonged use of antibiotics after surgery does not lower your risk of infection and can cause side effects, so only take antibiotics as directed. Pain Management: You received [place] in the emergency department because you could not access your usual pain medication. Continue your prescribed pain medication at home as directed by your surgeon. If you have questions about pain control, contact your doctor. Wound Care: Keep your surgical site clean and dry. Follow any wound care instructions given by your surgeon. Watch for signs of infection, such as increased redness, swelling, warmth, pus, or a bad smell. Follow-Up: Schedule follow-up appointments with your primary care provider and your surgeon as instructed. These visits are important to make sure your recovery is going well. Return Precautions: Return to the emergency department right away if you notice: Worsening pain, redness, or swelling at the surgical site Fever over 101F (38.3C) Pus or foul-smelling drainage from the wound Trouble breathing, chest pain, or feeling very weak Any other symptoms that concern you Other Information: Taking antibiotics for longer than needed can increase your risk of side e ffects, including stomach upset, diarrhea, and infections like C. difficile. Only take antibiotics as prescribed. If you have any questions about your medications, wound care, or symptoms, contact your doctor or surgeon. Wishing you a safe and speedy recovery! Referrals: NO PRIMARY CARE PROVIDER (PCP) Prescriptions Hydrocodone Bit/Acetaminophen 5/325 MG ([place] 5/325 MG) 5 Mg/325 Mg Tablet 1 TAB PO Q8H PRN for pain for 2 Days, #6 TAB Prov: CAROLEE CID 03/12/25 Cephalexin*Monohydrate* (Keflex*) 500 Mg Capsule 1 CAP PO QID for 7 Days, #28 CAP Prov: CAROLEE CID 03/12/25 Education Educated: Patient Educated regarding: diagnosis, treatment, need for follow up Signature Scribe Signature: A Attestation: Scribed for Carolee Cid by LIA Shah . 03/12/25 16:37 CAROLEE CID Mar 12, 2025 15:21
[2025-03-12] MEDS ORDERED: CEPH-585 PO (16:36)
[2025-03-12 16:49] VITALS: TEMP 99.2
[2025-03-12 16:50] VITALS: BP 139/83; PULSE 90; RESP 14; O2SAT 98
[2025-03-12] MEDS: HYDROcodone/acetaminophen 10/325mg tab PO ONE (17:25)
[2025-03-12 18:02] LABS: MEAN PLATELET VOLUME 7.6 FL (7.4-10.4); RED CELL DISTRIBUTION WIDTH 15.0 % (11.5-14.5)
[2025-03-12 18:24] LABS: CREATININE 0.52 MG/DL (0.40-0.90); TOTAL CARBON DIOXIDE 26.5 MMOL/L (24-32); eCRCL 128 ML/MIN; eGFR > 90 ML/MIN
[2025-03-12] MEDS: CefTRIAXone 1000mg IM Kit (w/lidocaine diluent) IM ONE (19:17)
[2025-03-12] MEDS ORDERED: HYDR-3965 PO (20:00)
== END 2025-03-12 20:45 | disposition home or self-care (01) ==
LOC: ER 14:53
DX: T81.40XA Infection following a procedure, unspecified, initial encounter (principal); E11.9 Type 2 diabetes mellitus without complications; G89.29 Other chronic pain; G43.909 Migraine, unspecified, not intractable, without status migrainosus; Z87.442 Personal history of urinary calculi; Z87.19 Personal history of other diseases of the digestive system; Z90.49 Acquired absence of other specified parts of digestive tract; Z90.710 Acquired absence of both cervix and uterus; Z91.040 Latex allergy status; Z88.1 Allergy status to other antibiotic agents; Z88.5 Allergy status to narcotic agent; Z88.8 Allergy status to other drugs, medicaments and biological substances; Z79.899 Other long term (current) drug therapy; Z56.0 Unemployment, unspecified
CPT/HCPCS: 36415; 80053; 85025; 96372; 99283; J0696